=== PATIENT | female | born 2000 | race Caucasian/White ===

== ENCOUNTER 2019-04-13 18:14 | Emergency (ER) | payer BC ==
[2019-04-13 18:24] VITALS: TEMP 98.2
[2019-04-13 18:54] LABS: Basophils # (A) 0.1 k/uL (0-0.2); Basophils % (A) 1 %; Eosinophils # (A) 0.2 k/uL (0-0.7); Eosinophils % (A) 2 %; HCT 45.9 % (34.0-46.0); HGB 14.8 gm/dL (11.4-16.0); Lymphocytes # (A) 2.8 k/uL (1.0-4.8); Lymphocytes % (A) 28 %; MCH 28.2 pg (25.0-35.0); MCHC 32.3 g/dL (31.0-37.0); MCV 87.4 fL (80.0-100.0); Mean Platelet Volume 6.7; Monocytes # (A) 0.5 k/uL (0-1.0); Monocytes % (A) 5 %; Neutrophils # (A) 6.4 k/uL (1.3-7.7); Neutrophils % (A) 64 %; Platelet Count 342 k/uL (150-450); RBC 5.26 m/uL (3.80-5.40); RDW 12.7 % (11.5-15.5); WBC 10.1 k/uL (3.8-10.6)
[2019-04-13 19:02] LABS: ALT 9 U/L (9-52); AST 21 U/L (14-36); African American GFR (CKD) >90 (>60 ml/min/1.73 sqM); Albumin 5.2 g/dL (3.5-5.0); Alkaline Phosphatase 81 U/L (38-126); Anion Gap 11 mmol/L; Blood Urea Nitrogen 10 mg/dL (7-17); Carbon Dioxide 26 mmol/L (22-30); Chloride 104 mmol/L (98-107); Glucose 77 mg/dL (74-99); Non-African American GFR(CKD) >90 (>60 ml/min/1.73 sqM); Potassium 3.8 mmol/L (3.5-5.1); Sodium 141 mmol/L (137-145); Total Bilirubin 0.4 mg/dL (0.2-1.3); Total Protein 8.6 g/dL (6.3-8.2)
[2019-04-13 19:19] LABS: HCG,Quantitative Serum 5584.7 mIU/mL
--- NOTE | 2019-04-13 20:39 | US ---
EXAMINATION TYPE: Transabdominal DATE OF EXAM: 04/13/2019 8:19 PM COMPARISON: NONE CLINICAL HISTORY: pain. pelvic pain, bleeding d 4 days. Irregular periods. EXAM PERFORMED: Transvaginal (TV) EXAM MEASUREMENTS: GESTATIONAL AGE / DATING Physician Established: (5 weeks/3 days) EDC: 12/11/2019 Dates by LMP: Irregular periods Dates by First Scan: This is first scan Dates by Current Scan for: Out of range. MATERNAL ANATOMY Uterus: 6.6 x 4.4 x 3.3 cm. Retroverted. Right Ovary: 3.9 x 2.6 x 1.9 cm. appears wnl Left Ovary: 4.9 x 3.4 x 2.6. Focus of complex echogenicity and peripheral vascularity seen. Anechoic center with debris and hyperechoic rim: 4.2 x 3.0 x 2.0 cm. Post CDS / Adnexa: minimal fluid seen Presence of free fluid: minimal CDS Presence of corpus luteal cyst: mixed echogenicity focus seen as mentioned above in left ovary, measu rin.2 x 3.0 x 2.0 cm. Presence of subchorionic bleed: No. GESTATION / SURVEY CRL: not seen at this time MSD: 0.68 cm. Yolk Sac (normal less than 6mm): Yes IUP: Gestational sac seen within the endometrium of the uterine fundus. Date of LMP: Irregular Beta HcG (if available): 5,584.7 IMPRESSION: IUP as detailed.
--- NOTE | 2019-04-13 21:10 | ED ---
Female Urogenital HPI - General Chief complaint: Vaginal Bleeding Stated complaint: 5 wks /bleeding Source: patient Mode of arrival: ambulatory Limitations: no limitations - History of Present Illness Initial comments: 22-year-old female presenting for chief complaint of bleeding in . Patient states she believes she is around 5 weeks she had an ultrasound yesterday which revealed an intrauterine gestational sac. Patient states she has had vaginal bleeding for the past 4 days she states is now brown more like a period. Patient denies any increasing heaviness. Patient denies any significant pain admits to occasional cramping. Patient denies nausea or vomiting. Denies diarrhea fevers dysuria urgency or frequency. Patient states that her last menstrual period was February 03. She states they are irregular however. Patient has an appointment scheduled with Dr. Jimenez on April 18. Remaining review of system negative. Patient presents emergency department for second opinion. Last Menstrual Period: 02/03/19 - Related Data Home Medications Medication Instructions Recorded Confirmed Antibiotic Drop 1 drop RIGHT EAR DIRECTED 07/17/16 07/20/16 Previous Rx's Medication Instructions Recorded Azithromycin [Zithromax Z-pack] 250 mg PO DIRECTED #6 tab NS 07/20/16 Ciprofloxacin HCl/Dexameth 4 drops RIGHT EAR BID #7.5 ml 07/20/16 [Ciprodex Otic Suspension] Allergies Allergy/AdvReac Type Severity Reaction Status Date / Time Penicillins Allergy Rash/Hives Verified 04/13/19 18:24 Review of Systems ROS Statement: Those systems with pertinent positive or pertinent negative responses have been documented in the HPI. ROS Other: All systems not noted in ROS Statement are negative. Past Medical History Additional Past Medical History / Comment(s): FREQUENT RIGHT EAR INFECTIONS History of Any Multi-Drug Resistant Organisms: None Reported Past Surgical History: Ear Surgery, Orthopedic Surgery Additional Past Surgical History / Comment(s): PREVIOUS MYRINGOTOMY AND TUBES X2, Pins in (R) ankle Past Anesthesia/Blood Transfusion Reactions: No Reported Reaction Past Psychological History: No Psychological Hx Reported Smoking Status: Current every day smoker Past Alcohol Use History: None Reported Past Drug Use History: Marijuana - Past Family History Mother Family Medical History: No Reported History General Exam - General Exam Comments Initial Comments: General: The patient is awake and alert, in no distress, and does not appear acutely ill. Eye: Pupils are equal, round and reactive to light, extra-ocular movements are intact. No nystagmus. There is normal conjunctiva bilaterally. No signs of icterus. Ears, nose, mouth and throat: There are moist mucous membranes and no oral lesions. Neck: The neck is supple, there is no tenderness or JVD. Cardiovascular: There is a regular rate and rhythm. No murmur, rub or gallop is appreciated. Respiratory: Lungs are clear to auscultation, respirations are non-labored, dru ath sounds are equal. No wheezes, stridor, rales, or rhonchi. Gastrointestinal: Soft, non-distended, non-tender abdomen without masses or organomegaly noted. There is no rebound or guarding present. No CVA tenderness. Bowel sounds are unremarkable. Pelvic exam was performed. Here shaped no external lesions. Speculum revealed scant amount of brown discharge in the vau lt. No bright red blood. No adnexal cervical motion tenderness. Patient has no noted cervical lesions. Cervix off to the left side of the vaginal vault. Musculoskeletal: Normal ROM, no tenderness. Strength 5/5. Sensation intact. Pulses equal bilaterally 2+. Neurological: A&O x 3. CN II-XII intact, There are no obvious motor or sensory deficits. Coordination appears grossly intact. Speech is normal. Skin: Skin is warm and dry and no rashes or lesions are noted. Psychiatric: Cooperative, appropriate mood & affect, normal judgment. Limitations: no limitations Course Vital Signs 04/13/19 04/13/19 18:21 21:17 Temperature 98.2 F Pulse Rate 82 65 Respiratory 16 18 Rate Blood Pressure 130/81 115/80 O2 Sat by Pulse 99 100 Oximetry Medical Decision Making - Medical Decision Making Well-appearing 19-year-old female presenting for vaginal bleeding and . Ultrasound revealed a left sided corpus luteal cyst on the ovary. As well as a gestational sac. This is consistent with a hCG of less than 5500. Patient bleeding is not heavy. Cultures pending for STI testing. No adnexal or cervical motion tenderness. Patient has scheduled appointment ASSESSMENT CONSULTANT on Wednesday of next week. Denies pain. Abdominal exam benign. Patient does not require program. At this time I do feel patient is stable for discharge with outpatient follow-up as scheduled. Patient is agreeable to plan return parameters were discussed patient was discharged appearing well - Lab Data Result diagrams: 04/13/19 18:40 08/01/19 18:40 Lab Results 04/13/19 04/13/19 04/13/19 Range/Units 18:40 18:40 18:40 WBC 10.1 (3.8-10.6) k/uL RBC 5.26 (3.80-5.40) m/uL Hgb 14.8 (11.4-16.0) gm/dL Hct 45.9 (34.0-46.0) % MCV 87.4 (80.0-100.0) fL MCH 28.2 (25.0-35.0) pg MCHC 32.3 (31.0-37.0) g/dL RDW 12.7 (11.5-15.5) % Plt Count 342 (150-450) k/uL Neutrophils % 64 % Lymphocytes % 28 % Monocytes % 5 % Eosinophils % 2 % Basophils % 1 % Neutrophils # 6.4 (1.3-7.7) k/uL Lymphocytes # 2.8 (1.0-4.8) k/uL Monocytes # 0.5 (0-1.0) k/uL Eosinophils # 0.2 (0-0.7) k/uL Basophils # 0.1 (0-0.2) k/uL Sodium 141 (137-145) mmol/L Potassium 3.8 (3.5-5.1) mmol/L Chloride 104 (98-107) mmol/L Carbon Dioxide 26 (22-30) mmol/L Anion Gap 11 mmol/L BUN 10 (7-17) mg/dL Creatinine 0.60 (0.52-1.04) mg/dL Est GFR (CKD-EPI)AfAm >90 (>60 ml/min/1.73 sqM) Est GFR (CKD-EPI)NonAf >90 (>60 ml/min/1.73 sqM) Glucose 77 (74-99) mg/dL Calcium 10.0 (8.4-10.2) mg/dL Total Bilirubin 0.4 (0.2-1.3) mg/dL AST 21 (14-36) U/L ALT 9 (9-52) U/L Alkaline Phosphatase 81 (38-126) U/L Total Protein 8.6 H (6.3-8.2) g/dL Albumin 5.2 H (3.5-5.0) g/dL HCG, Quant 5584.7 mIU/mL Trichomonas Ag (Rapid) (Negative) Blood Type O Positive Blood Type Confirm Blood Type Recheck CABO Indicated Antibody Screen NEGATIVE Spec Expiration Date 04/16/2019 - 233904/13/19 04/13/19 Range/Units 19:26 21:09 WBC (3.8-10.6) k/uL RBC (3.80-5.40) m/uL Hgb (11.4-16.0) gm/dL Hct (34.0-46.0) % MCV (80.0-100.0) fL MCH (25.0-35.0) pg MCHC (31.0-37.0) g/dL RDW (11.5-15.5) % Plt Count (150-450) k/uL Neutrophils % % Lymphocytes % % Monocytes % % Eosinophils % % Basophils % % Neutrophils # (1.3-7.7) k/uL Lymphocytes # (1.0-4.8) k/uL Monocytes # (0-1.0) k/uL Eosinophils # (0-0.7) k/uL Basophils # (0-0.2) k/uL Sodium (137-145) mmol/L Potassium (3.5-5.1) mmol/L Chloride (98-107) mmol/L Carbon Dioxide (22-30) mmol/L Anion Gap mmol/L BUN (7-17) mg/dL Creatinine (0.52-1.04) mg/dL Est GFR (CKD-EPI)AfAm (>60 ml/min/1.73 sqM) Est GFR (CKD-EPI)NonAf (>60 ml/min/1.73 sqM) Glucose (74-99) mg/dL Calcium (8.4-10.2) mg/dL Total Bilirubin (0.2-1.3) mg/dL AST (14-36) U/L ALT (9-52) U/L Alkaline Phosphatase (38-126) U/L Total Protein (6.3-8.2) g/dL Albumin (3.5-5.0) g/dL HCG, Quant mIU/mL Trichomonas Ag (Rapid) Negative (Negative) Blood Type Blood Type Confirm O Positive Blood Type Recheck Antibody Screen Spec Expiration Date Disposition Clinical Impression: Threatened Disposition: HOME SELF-CARE Condition: Good Instructions (If sedation given, give patient instructions): Threatened Miscarriage (ED), Ovarian Cyst (ED) Additional Instructions: Please use medication as discussed. Please follow-up with OBGYN on the 6th as discussed. Please return to emergency room if the symptoms increase or worsen or for any other concerns. Is patient prescribed a controlled substance at d/c from ED?: No Referrals: Ulises Robin DO [Primary Care Provider] - 1-2 days Eladia Tong DO [Doctor of Osteopathic Medicine] - 1-2 days Time of Disposition: 21:09
[2019-04-13 21:18] VITALS: BP 115/80; PULSE 65; RESP 18
[2019-04-15 15:37] LABS: C. trachomatis,PCR Negative (Neg,Equiv); Chlamydia trachomatis Source Vagina
[2019-04-15 15:38] LABS: N. gonorrhoeae,PCR Negative (Neg,Equiv); Neisseria Source Vagina
== END 2019-04-13 21:17 | disposition home or self-care (01) ==
LOC: EC 18:14
DX: O20.0 Threatened abortion (principal); O34.81 Maternal care for other abnormalities of pelvic organs, first trimester; N83.12 Corpus luteum cyst of left ovary; O99.331 Smoking (tobacco) complicating pregnancy, first trimester; F17.200 Nicotine dependence, unspecified, uncomplicated; Z88.0 Allergy status to penicillin; Z86.19 Personal history of other infectious and parasitic diseases; Z96.22 Myringotomy tube(s) status; Z3A.01 Less than 8 weeks gestation of pregnancy
CPT/HCPCS: 36415; 76801; 76817; 80053; 84702; 85025; 86850; 86900; 86901; 87070; 87205; 87491; 87591; 87808; 99284

== ENCOUNTER 2019-07-11 20:54 | Emergency (ER) | payer BC, OTHER ==
[2019-07-11 21:03] VITALS: BP 110/62; PULSE 95; RESP 18; TEMP 98.2
[2019-07-11 21:27] LABS: Appearance,Urine Clear (Clear); Bacteria,Urine Rare /hpf; Bilirubin,Urine Negative (Negative); Blood,Urine Small (Negative); Color,Urine Yellow; Glucose,Urine (UA) Negative (Negative); Ketones,Urine Negative (Negative); Leukocyte Esterase,Urine Negative (Negative); Nitrite,Urine Negative (Negative); Protein,Urine Negative (Negative); RBC,Urine 3 /hpf (0-5); Squamous Epithelial Cell,Urine <1 /hpf (0-4); Urobilinogen,Urine <2.0 mg/dL (<2.0)
--- NOTE | 2019-07-11 21:37 | ED ---
General Adult HPI - General Chief complaint: Abdominal Pain Stated complaint: Fever,Abd Cramping 18 weeks Preg Time Seen by Provider: 07/11/19 21:17 Source: patient Mode of arrival: ambulatory Limitations: no limitations - History of Present Illness Initial comments: Hui is a female currently 18 wks gestation who presents to the ER today via private vehicle for evaluation of decreased movement and low grade fever. Patient states that all week her vision has been running 99-99.8 she's been eating and drinking well, she saw her primary care physician earlier in the week and was told that likely her temperature is high due to being dehydrated so she's been trying to drink 4 bottles of water per day. Patient states that over the past 2 days she doesn't feel like the baby's been moving as much, she is not scheduled to see her predictive maintenance specialist until the fifth so she became anxious. Patient also states that she's been eating at least a couple of apples every day and today was notified that there is a recall on apples due to possible listeria. Patient Dr. primary care physician about this and was advised that there is nothing she can do. Patient is not having any signs or symptoms of illness. - Related Data Home Medications Medication Instructions Recorded Confirmed Antibiotic Drop 1 drop RIGHT EAR DIRECTED 07/17/16 07/20/16 Previous Rx's Medication Instructions Recorded Azithromycin [Zithromax Z-pack] 250 mg PO DIRECTED #6 tab NS 07/20/16 Ciprofloxacin HCl/Dexameth 4 drops RIGHT EAR BID #7.5 ml 07/20/16 [Ciprodex Otic Suspension] Allergies Allergy/AdvReac Type Severity Reaction Status Date / Time Penicillins Allergy Rash/Hives Verified 07/11/19 21:02 Review of Systems ROS Statement: Those systems with pertinent positive or pertinent negative responses have been documented in the HPI. ROS Other: All systems not noted in ROS Statement are negative. Past Medical History Additional Past Medical History / Comment(s): FREQUENT RIGHT EAR INFECTIONS History of Any Multi-Drug Resistant Organisms: None Reported Past Surgical History: Ear Surgery, Orthopedic Surgery Additional Past Surgical History / Comment(s): PREVIOUS MYRINGOTOMY AND TUBES X2, Pins in (R) ankle, Past Anesthesia/Blood Transfusion Reactions: No Reported Reaction Past Psychological History: No Psychological Hx Reported Smoking Status: Current every day smoker Past Alcohol Use History: None Reported Past Drug Use History: Marijuana - Past Family History Mother Family Medical History: No Reported History General Exam - General Exam Comments Initial Comments: Physical Exam GENERAL: Patient is well-developed and well-nourished. Patient is nontoxic and well- hydrated and is in no distress. Resting comfortably drinking water no acute distress HENT: Normocephalic, Atraumatic. EYES: PERRL, EOMI PULMONARY: Unlabored respirations. No audible rales rhonchi or wheezing was noted. CARDIOVASCULAR: There is a regular rate and rhythm without any murmurs gallops or rubs. ABDOMEN: Soft and nontender with normal bowel sounds. Uterus is palpable just below the umbilicus, no tenderness SKIN: Skin is clear with no lesions or rashes and otherwise unremarkable. : Deferred Patient denies vaginal discharge or bleeding NEUROLOGIC: Patient is alert and oriented x3. Moving all extremities spontaneously MUSCULOSKELETAL: Normal extremities with adequate strength and full range of motion. No lower extremity swelling or edema. No calf tenderness. PSYCHIATRIC: Normal psychiatric evaluation. Limitations: no limitations Course Vital Signs 07/11/19 20:58 Temperature 98.2 F Pulse Rate 95 Respiratory 18 Rate Blood Pressure 110/62 O2 Sat by Pulse 98 Oximetry Medical Decision Making - Medical Decision Making The patient was seen and evaluated, history was obtained from the patient Patient concerned about exposure Listeria that she is asymptomatic, patient also concerned that her temperature is been reading about 99% she was afebrile here not taking any antipyretics drink plenty of fluids having normal bowel and bladder habits. Urinalysis was obtained with no signs of infection, patient has had trace blood in her urine throughout the she's followed with her predictive maintenance specialist about this. Bedside ultrasound reveals an active fetus heart rate in the 140s expresses significant relief after single active fetus. At this time I don't feel there is any indication for further workup. Patient is awake alert oriented well-hydrated in no acute distress with active fetus on ultrasound. Patient's comfortable with the plan for outpatient follow-up with her predictive maintenance specialist as scheduled on July 18. - Lab Data Lab Results 07/11/19 Range/Units 21:06 Urine Color Yellow Urine Appearance Clear (Clear) Urine pH 7.0 (5.0-8.0) Ur Specific [place] 1.010 (1.001-1.035) Urine Protein Negative (Negative) Urine Glucose (UA) Negative (Negative) Urine Ketones Negative (Negative) Urine Blood Small H (Negative) Urine Nitrite Negative (Negative) Urine Bilirubin Negative (Negative) Urine Urobilinogen <2.0 (<2.0) mg/dL Ur Leukocyte Esterase Negative (Negative) Urine RBC 3 (0-5) /hpf Urine WBC 2 (0-5) /hpf Ur Squamous Epith Cells <1 (0-4) /hpf Urine Bacteria Rare H (None) /hpf Disposition Clinical Impression: Abdominal pain affecting Disposition: HOME SELF-CARE Condition: Stable Instructions (If sedation given, give patient instructions): Abdominal Pain in (ED) Is patient prescribed a controlled substance at d/c from ED?: No Referrals: Ulises Robin DO [Primary Care Provider] - 1-2 days
== END 2019-07-11 21:51 | disposition home or self-care (01) ==
LOC: EC 20:54
DX: O99.89 Other specified diseases and conditions complicating pregnancy, childbirth and the puerperium (principal); R10.9 Unspecified abdominal pain; R50.9 Fever, unspecified; O99.332 Smoking (tobacco) complicating pregnancy, second trimester; F17.200 Nicotine dependence, unspecified, uncomplicated; Z3A.18 18 weeks gestation of pregnancy; Z88.0 Allergy status to penicillin
CPT/HCPCS: 81001; 99284

== ENCOUNTER 2019-11-19 23:03 | Emergency (ER) | payer BC, OTHER ==
[2019-11-19 23:09] VITALS: TEMP 98
--- NOTE | 2019-11-20 01:04 | ED ---
General Adult HPI - General Chief complaint: Abdominal Pain Stated complaint: Constipation-37wks preg Time Seen by Provider: 11/19/19 23:25 Source: patient Mode of arrival: ambulatory Limitations: no limitations - History of Present Illness Initial comments: 19-year-old female patient presents to the emergency department today for evaluation of constipation. Patient states she is 37 weeks and has been having issues with constipation since becoming . States that she did have issues with constipation prior to as well. Patient states that she has had only one good bowel movement over the last month. States that she has been taking MiraLAX, using suppositories, and stool softeners without relief. States that she has seen her VICE CHAIR. Patient states it has been 6 days since any stool output. States she is passing gas. Denies any nausea or vomiting. Patient states that she is eating without difficulty however she feels her appetite is decreased. Patient is feeling normal movement. She denies any abnormal vaginal bleeding or discharge. She is receiving care from Dr. Tong. Patient denies any recent rash, fever, chills, shortness breath, chest pain, abdominal pain, back pain, numbness, tingling, dizziness, weakness, hematuria, dysuria, urinary urgency, urinary frequency, headache, visual changes, or any other complaints. - Related Data Home Medications Medication Instructions Recorded Confirmed Acetaminophen [Tylenol Extra 500 mg PO DAILY PRN 07/11/19 07/11/19 Strength] Allergies Allergy/AdvReac Type Severity Reaction Status Date / Time Penicillins Allergy Rash/Hives Verified 11/19/19 23:09 Review of Systems ROS Statement: Those systems with pertinent positive or pertinent negative responses have been documented in the HPI. ROS Other: All systems not noted in ROS Statement are negative. Past Medical History Additional Past Medical History / Comment(s): FREQUENT RIGHT EAR INFECTIONS History of Any Multi-Drug Resistant Organisms: None Reported Past Surgical History: Ear Surgery, Orthopedic Surgery Additional Past Surgical History / Comment(s): PREVIOUS MYRINGOTOMY AND TUBES X2, Pins in (R) ankle, Past Anesthesia/Blood Transfusion Reactions: No Reported Reaction Past Psychological History: No Psychological Hx Reported Smoking Status: Current every day smoker Past Alcohol Use History: None Reported Past Drug Use History: Marijuana - Past Family History Mother Family Medical History: No Reported History General Exam Limitations: no limitations General appearance: alert, in no apparent distress, other (This is a well- developed, well-nourished adult female patient in no acute distress. Vital signs upon presentation are temperature 98.0F, pulse 77, respirations 20, blood pressure 144/85, pulse ox 99% on room air.) Eye exam: Present: normal appearance, PERRL, EOMI. Absent: scleral icterus, conjunctival injection, periorbital swelling ENT exam: Present: normal exam, normal oropharynx, mucous membranes moist Respiratory exam: Present: normal lung sounds bilaterally. Absent: respiratory distress, wheezes, rales, rhonchi, stridor Cardiovascular Exam: Present: regular rate, normal rhythm, normal heart sounds. Absent: systolic murmur, diastolic murmur, rubs, gallop, clicks GI/Abdominal exam: Present: normal bowel sounds, other (Gravid abdomen). Absent: distended, tenderness, guarding, rebound, rigid Back exam: Present: normal inspection. Absent: CVA tenderness (R), CVA tenderness (L) Neurological exam: Present: alert, oriented X3, CN II-XII intact Psychiatric exam: Present: normal affect, normal mood Skin exam: Present: warm, dry, intact, normal color. Absent: rash Course Vital Signs 11/19/19 11/20/19 23:05 01:18 Temperature 98.0 F 98.0 F Pulse Rate 77 70 Respiratory 20 18 Rate Blood Pressure 144/85 138/81 O2 Sat by Pulse 99 100 Oximetry Medical Decision Making - Medical Decision Making 19-year-old female patient presents to the emergency department today for evaluation of constipation. States his been sick states that she's had a bowel movement. She reports no significant discomfort. Physical examination reveals a gravid abdomen with no tenderness. heart tones ranged from the 140s to the 160s. movement was palpated. Patient denied abnormal vaginal bleeding or discharge. We did administer a milk and molasses enema. Patient did have a large bowel movement. States she does feel better. To be discharged to follow-up with her VICE CHAIR for recheck in 1-2 days. Return parameters were discussed in detail. She verbalizes understanding and agrees this plan. Disposition Clinical Impression: Constipation Disposition: HOME SELF-CARE Condition: Good Instructions (If sedation given, give patient instructions): Constipation (ED) Additional Instructions: Follow up with your OBGYN for recheck in 1-2 days. Increase fluids, especially water - try to drink half of your body weight in ounces daily. Increase fruits and vegetables in the diet. Avoid foods you know to be constipating. Return to the emergency department immediately for any new, worsening, or concerning symptoms. Is patient prescribed a controlled substance at d/c from ED?: No Referrals: Ulises Robin DO [Primary Care Provider] - 1-2 days Time of Disposition: 01:04
[2019-11-20 01:20] VITALS: BP 138/81; PULSE 70; RESP 18
== END 2019-11-20 01:18 | disposition home or self-care (01) ==
LOC: EC 23:03
DX: O99.613 Diseases of the digestive system complicating pregnancy, third trimester (principal); K59.00 Constipation, unspecified; O99.333 Smoking (tobacco) complicating pregnancy, third trimester; F17.200 Nicotine dependence, unspecified, uncomplicated; Z88.0 Allergy status to penicillin; Z3A.37 37 weeks gestation of pregnancy
CPT/HCPCS: 99283

== ENCOUNTER 2019-11-23 13:28 | Outpatient (CLI) | payer BC, OTHER ==
[2019-11-23 14:54] VITALS: BP 120/74; PULSE 89; RESP 16; TEMP 98.2
--- NOTE | 2019-12-06 11:51 | P.MSEPDOC ---
Presenting Problems - Arrival Data Date of Arrival on Unit: 11/23/19 Time of Arrival on Unit: 13:28 Mode of Transport: Ambulatory - Complaint OB-Reason for Admission/Chief Complaint: Possible Onset of Labor, Rule Out SROM Medical History - Information : 1 Para: 0 Term: 0 : 0 Abortions: Spontaneous or Elective: 0 Number of Living Children: 0 - Gestational Age Gestational Age by ERICK (wks/days): 37 Weeks and 3 Days - History Complications: Smoker Comment: 2 vessel cord Review of Systems - Review of Systems Constitutional: No problems Breast: No problems ENT: No problems Cardiovascular: No problems Respiratory: No problems Gastrointestinal: No problems Genitourinary: No problems Musculoskeletal: No problems Neurological: No problems Skin: No problems Vital Signs - Temperature Temperature: 98.2 F Temperature Source: Temporal Artery Scan - Pulse Right Sitting Pulse Rate: 89 Pulse Assessment Method: Automatic Cuff - Respirations Respiratory Rate: 16 Oxygen Delivery Method: Room Air O2 Sat by Pulse Oximetry: 99 - Blood Pressure Right Arm Blood Pressure: 120/74 Blood Pressure Mean: 89 Blood Pressure Source: Automatic Cuff Medical Screen Scoring (Pre) - Cervical Exam Dilation: 0 cm = 0 Membranes: Intact - Uterine Contractions Frequency: > 5 minutes apart = 1 - Maternal Vital Signs Maternal Temperature: N/A Maternal Blood Pressure: N/A Signs of Preeclampsia: N/A Maternal Respirations: N/A - Maternal Trauma Maternal Trauma: N/A - Assessment - Baby A Baseline FHR: 120 Heart Rate - NICHD Category: Category I (Normal) = 0 NST: Reactive Position: N/A Station: N/A - Total Score - Baby A Total Score - Baby A: 1 - Total Score - Baby B Total Score - Baby B: 1 - Total Score - Baby C Total Score - Baby C: 1 - Level of Risk - Baby A Level of Risk - Baby A: Low (0-5) - Level of Risk - Baby B Level of Risk - Baby B: Low (0-5) - Level of Risk - Baby C Level of Risk - Baby C: Low (0-5) Physician Notification (Pre) - Physician Notified Physician Notified Date: 11/23/19 Physician Notified Time: 14:26 New Order Received: Yes (d/c) Disposition - Disposition OB Disposition: Discharge to home Discharge Date: 11/23/19 Discharge Time: 14:40 I agree with the RN Medical Screening Exam: Yes Risk & Benefit of care provided described in d/c instruction: Yes Diagnosis: FALSE LABOR AT OR AFTER 37 COMPLETED WEEKS OF GESTATION
== END 2019-11-23 14:40 | disposition home or self-care (01) ==
LOC: FBPOP 13:28
PROVIDERS: ATTEND Obstetrics & Gynecology Obstetrics
DX: O47.1 False labor at or after 37 completed weeks of gestation (principal); Z3A.37 37 weeks gestation of pregnancy
CPT/HCPCS: 59025; 84112; 99213

== ENCOUNTER 2019-11-28 12:46 | Inpatient (IN) | payer BC, OTHER ==
--- NOTE | 2019-11-28 12:45 | P.HPOB ---
History of Present Illness H&P Date: 11/28/19 Chief Complaint: IUP at 38 and 0/sevenths weeks, IUGR, SUA This is a 19-year-old 1 para 0 at 38-0/7 weeks that presented for routine visit today along with ultrasound growth evaluation. Patient has known single umbilical artery has been followed closely for growth and testing. Patient was noted to have an estimated weight approximately 4 weeks ago of 18 percentile, today estimated weight was noted to be 8 percentile. Patient had a normal amniotic fluid index of 13, NST was noted to be reactive. Cervix is noted to be unfavorable but given worsening IUGR recommendation was made for induction of labor. Patient has been receiving routine care with myself and has been compliant with a testing. Review of Systems Constitutional: Denies chills, Denies fatigue, Denies fever Ears, nose, mouth and throat: Denies headache Cardiovascular: Denies edema Gastrointestinal: Reports constipation, Denies nausea, Denies vomiting Genitourinary: Reports Past Medical History Additional Past Medical History / Comment(s): FREQUENT RIGHT EAR INFECTIONS History of Any Multi-Drug Resistant Organisms: None Reported Past Surgical History: Ear Surgery, Orthopedic Surgery Additional Past Surgical History / Comment(s): PREVIOUS MYRINGOTOMY AND TUBES X2, Pins in (R) ankle, Past Anesthesia/Blood Transfusion Reactions: No Reported Reaction Smoking Status: Current every day smoker - Past Family History Mother Family Medical History: No Reported History Medications and Allergies Home Medications Medication Instructions Recorded Confirmed Type Acetaminophen [Tylenol Extra 500 mg PO DAILY PRN 07/11/19 11/23/19 History Strength] Pnv No.95/Ferrous Fum/Folic AC 1 tab PO DAILY 11/23/19 11/23/19 History [ Multivitamin Tablet] Allergies Allergy/AdvReac Type Severity Reaction Status Date / Time Penicillins Allergy Rash/Hives Verified 11/23/19 13:46 Exam Osteopathic Statement: *. No significant issues noted on an osteopathic structural exam other than those noted in the History and Physical/Consult. Targeted physical exam is performed in this date in general this a well- nourished well-developed female in no acute distress, breathing is noted to be nonlabored, heart has regular rate and rhythm, abdomen is gravid, heart tones were category 1, cervical exam in the office fingertip/50/high station v ertex based on ultrasound. Assessment and Plan (1) 38 weeks gestation of Status: Acute Code(s): Z3A.38 - 38 WEEKS GESTATION OF SNOMED Code(s): 47272306 (2) IUGR (intrauterine growth restriction) Status: Acute Code(s): PCF0394 - SNOMED Code(s): 02117881 (3) Single umbilical artery Status: Acute Code(s): Q27.0 - CONGENITAL ABSENCE AND HYPOPLASIA OF UMBILICAL ARTERY SNOMED Code(s): 388576444 Plan: Patient is admitted to labor and delivery and plan Cervidil induction of labor is discussed. Patient is counseled on the need for induction of labor secondary to asymmetrical IUGR noted on ultrasound today. Given patient's gestational age of 38 weeks will proceed with Cervidil induction of labor. 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
[~2019-11-28 12:46] MED LIST: CARBOPROST TROMETHAMINE 250 MCG/ML 1 ML AMP IM PRN; LIDOCAINE 0.5% (PF) 5 MG/ML (50 ML SDV) SQ PRN; METHYLERGONOVINE 0.2 MG/ML 1 ML AMP IM PRN; OXYTOCIN 10 UNIT/ML 1 ML VIAL IM PRN; TERBUTALINE 1 MG/ML VIAL SQ PRN
[2019-11-28] MEDS ORDERED: DINOPROSTONE 10 MG INSERT.ER VAGINAL ONE (13:00)
[2019-11-28] MEDS: LACTATED RINGERS 1,000 ML IV SCH (13:15)
[2019-11-28 13:40] LABS: Basophils # (A) 0.1 k/uL (0-0.2); Basophils % (A) 0 %; Eosinophils # (A) 0.1 k/uL (0-0.7); Eosinophils % (A) 1 %; HCT 38.7 % (34.0-46.0); HGB 12.8 gm/dL (11.4-16.0); Lymphocytes # (A) 1.8 k/uL (1.0-4.8); Lymphocytes % (A) 12 %; MCH 30.3 pg (25.0-35.0); MCHC 33.2 g/dL (31.0-37.0); MCV 91.3 fL (80.0-100.0); Mean Platelet Volume 7.4; Monocytes # (A) 0.6 k/uL (0-1.0); Monocytes % (A) 4 %; Neutrophils # (A) 11.8 k/uL (1.3-7.7); Neutrophils % (A) 82 %; Platelet Count 291 k/uL (150-450); RBC 4.24 m/uL (3.80-5.40); RDW 12.9 % (11.5-15.5); WBC 14.5 k/uL (3.8-10.6)
[2019-11-28] MEDS: BUTORPHANOL 1 MG/ML 1 ML VIAL IV PRN ×3 (17:29→22:42)
[2019-11-29] MEDS: LACTATED RINGERS 1,000 ML IV SCH ×4 (01:50→11:23)
[2019-11-29] MEDS ORDERED: OXYTOCIN 30 UNITS/500 ML NS 30 UNIT in SALINE 1 500ML.BAG IV SCH (02:45)
[2019-11-29] MEDS: BUTORPHANOL 1 MG/ML 1 ML VIAL IV PRN ×3 (03:34→07:52)
[2019-11-29] MEDS: PRENATAL VIT-IRON-FOLIC ACID 1 EACH CAP PO SCH (08:27)
[2019-11-29] MEDS ORDERED: ROPIVACAINE 100 MG, fentaNYL (PF) 200 MCG in SODIUM CHLORIDE 0.9% 76 ML EPIDURAL ONE (09:56)
[2019-11-29] MEDS ORDERED: diphenhydrAMINE 50 MG/ML 1 ML VIAL IVP PRN ×2 (14:07)
[2019-11-29] MEDS ORDERED: diphenhydrAMINE 50 MG CAP PO PRN (14:07)
[2019-11-29] MEDS ORDERED: HYDROcodone/APAP 5-325MG 1 EACH TAB PO PRN (14:07)
[2019-11-29] MEDS ORDERED: HYDROCORTISONE 2.5% RECTAL CREAM 30 GM TUBE RECTAL PRN (14:07)
[2019-11-29] MEDS ORDERED: BENZOCAINE/MENTHOL SPRAY 1 GM/SPRAY AEROSOL TOPICAL PRN (14:07)
[2019-11-29] MEDS ORDERED: ZOLPIDEM 5 MG TAB PO PRN (14:07)
[2019-11-29] MEDS ORDERED: diphenhydrAMINE 25 MG CAP PO PRN (14:07)
[2019-11-29] MEDS ORDERED: WITCH HAZEL 1 EACH MED..PAD TOPICAL PRN (14:07)
[2019-11-29] MEDS ORDERED: SIMETHICONE 80 MG CHEWABLE PO PRN (14:07)
[2019-11-29] MEDS ORDERED: LANOLIN CREAM 5 GM TUBE TOPICAL PRN (14:07)
--- NOTE | 2019-11-29 14:13 | P.PROBDLV ---
Vaginal Delivery Note - . Vaginal Delivery Note: This pleasant 19-year-old 1 para 0 at 38-0/7 weeks presented to the office yesterday for a routine visit. Patient had scheduled and growth ultrasounds secondary to single umbilical artery. Growth was noted to decrease from the 18th percentile to the 8th percentile. Patient was then instructed to present to labor and delivery for induction of labor secondary to severe intrauterine growth restriction. Patient was admitted and Cervidil was placed. Patient made progress through the evening and this morning was noted to be 1/80/-1 station. Amniotomy was performed. Patient became uncomfortable requested epidural placement. Patient had epidural placed by the anesthesia Department without difficulty. Patient progressed to complete began pushing and had a normal spontaneous vaginal delivery of a viable female infant at 1343, weight of 5 lbs. 2 oz. with Apgars of 8 and 9 at one and 5 minutes respectively. After a two-minute delayed the umbilical cord was then doubly clamped and cut. Prior to delivery of the head a midline episiotomy was preformed. Placenta was noted to be retained therefore manual extraction was performed placenta was noted to be intact. Uterus was noted to be firm and below the umbilicus at this time. Attention was then turned to the midline episiotomy was repaired without difficulty with 3-0 Rapide. Estimated blood loss 200 mL. Further inspection of the patient's vaginal vault revealed no further l acerations that necessitated repair. The cervix was inspected and hemostatic. Patient and tolerated delivery well and are resting comfortably.
[2019-11-29] MEDS ORDERED: OXYTOCIN 20 UNITS/1000 ML NS 1,000 ML IV SCH (14:15)
[2019-11-29] MEDS: IBUPROFEN 600 MG TAB PO PRN ×2 (15:38→22:24)
[2019-11-29] MEDS: SENNOSIDES-DOCUSATE SODIUM 1 EACH TAB PO SCH (19:56)
[2019-11-30] MEDS: ACETAMINOPHEN TAB 325 MG TAB PO PRN ×3 (01:39→23:48)
[2019-11-30] MEDS: IBUPROFEN 600 MG TAB PO PRN ×2 (06:02→16:38)
[2019-11-30 06:48] LABS: Basophils % (A) 0 %; Eosinophils # (A) 0.1 k/uL (0-0.7); Eosinophils % (A) 1 %; HCT 31.6 % (34.0-46.0); HGB 10.9 gm/dL (11.4-16.0); Lymphocytes # (A) 2.2 k/uL (1.0-4.8); Lymphocytes % (A) 13 %; MCH 31.6 pg (25.0-35.0); MCHC 34.5 g/dL (31.0-37.0); MCV 91.5 fL (80.0-100.0); Mean Platelet Volume 7.4; Monocytes # (A) 0.8 k/uL (0-1.0); Monocytes % (A) 5 %; Neutrophils # (A) 13.2 k/uL (1.3-7.7); Neutrophils % (A) 80 %; Platelet Count 233 k/uL (150-450); RBC 3.46 m/uL (3.80-5.40); RDW 13.1 % (11.5-15.5); WBC 16.6 k/uL (3.8-10.6)
[2019-11-30] MEDS: SENNOSIDES-DOCUSATE SODIUM 1 EACH TAB PO SCH ×2 (08:20→23:48)
[2019-11-30] MEDS: PRENATAL VIT-IRON-FOLIC ACID 1 EACH CAP PO SCH (08:21)
--- NOTE | 2019-11-30 08:49 | P.DS ---
Providers Date of admission: 11/28/19 12:46 Expected date of discharge: 11/30/19 Attending physician: Eladia Tong Primary care physician: Stated None - Discharge Diagnosis(es) (1) 38 weeks gestation of Current Visit: No Status: Acute (2) IUGR (intrauterine growth restriction) Current Visit: No Status: Acute (3) Single umbilical artery Current Visit: No Status: Acute Hospital Course: This is a 19-year-old 1 para 0 at 38 and one sevenths weeks that presented to labor and delivery for induction of labor secondary to severe IUGR. Patient was admitted to labor and delivery and Cervidil induction was begun. In the morning Pitocin augmentation of labor was begun. Amniotomy was performed and clear fluid was obtained. Patient eventually became uncomfortable and requested epidural placement. Epidural was placed without difficulty by the anesthesia department. She progressed to complete began pushing and had a normal spontaneous vaginal delivery of a viable female a weight of 5 lbs. 2 oz. Patient did undergo episiotomy during delivery, this was repaired in the usual fashion with 3-0 Rapide. Patient's course has been uneventful. She is ambulating and voiding without difficulty. She is tolerating a regular diet without nausea or vomiting. The is working on feeding and she is currently bottle feeding at this time. She would like discharge home today if possible. Patient Condition at Discharge: Good Plan - Discharge Summary New Discharge Prescriptions: No Action Pnv No.95/Ferrous Fum/Folic AC [ Multivitamin Tablet] 1 tab PO DAILY Discharge Medication List Pnv No.95/Ferrous Fum/Folic AC [ Multivitamin Tablet] 1 tab PO DAILY 11/23/19 [History] Patient Instructions/Handouts: Vaginal Delivery (DC), Vaginal Delivery (GEN) Discharge Disposition: HOME SELF-CARE
[2019-12-01 00:43] VITALS: TEMP 98.3
--- NOTE | 2019-12-01 05:30 | P.PNOBGVD ---
Subjective - Subjective Principal diagnosis: PPD 2 Interval history: Patient is doing well. She is ambulating and voiding without difficulty. She is tolerating a regular diet without nausea or vomiting. Her lochia is minimal. Patient reports: Reports appetite normal, Reports voiding normally, Reports pain well controlled, Reports ambulating normally [place]: doing well, bottle feeding Objective - Latest Vital Signs Latest vital signs: Vital Signs Temp Pulse Resp BP 12/01/19 00:00 98.3 F 57 L 14 100/59 11/30/19 16:00 98.9 F 68 18 101/55 11/30/19 07:55 97.6 F 60 18 111/58 Intake and Output 11/30/19 11/30/19 12/01/19 14:59 22:59 06:59 Other: # Voids 1 2 - Exam Extremities: Present: normal Abdomen: Present: normal appearance, soft Uterus: Present: normal, firm - Labs Labs: Abnormal Lab Results - Last 24 Hours (Table) 11/30/19 Range/Units 06:31 WBC 16.6 H (3.8-10.6) k/uL RBC 3.46 L (3.80-5.40) m/uL Hgb 10.9 L (11.4-16.0) gm/dL Hct 31.6 L (34.0-46.0) % Neutrophils # 13.2 H (1.3-7.7) k/uL Assessment and Plan (1) 38 weeks gestation of Current Visit: No Status: Acute Code(s): Z3A.38 - 38 WEEKS GESTATION OF SNOMED Code(s): 76157877 (2) IUGR (intrauterine growth restriction) Current Visit: No Status: Acute Code(s): DPL3170 - SNOMED Code(s): 67920922 (3) Single umbilical artery Current Visit: No Status: Acute Code(s): Q27.0 - CONGENITAL ABSENCE AND HYPOPLASIA OF UMBILICAL ARTERY SNOMED Code(s): 867337046 (4) Status post vaginal delivery Current Visit: Yes Status: Acute Code(s): RXI4979 - SNOMED Code(s): 116413510 Plan: Plan discharge home pending infant's bili. Discharge instructions were reviewed with the patient previously. Patient's follow-up at 4-6 weeks for routine visit. [id number] ibuprofen as needed for discomfort. She is to call with any questions prior to this appointment.
[2019-12-01] MEDS: ACETAMINOPHEN TAB 325 MG TAB PO PRN ×2 (08:06→13:46)
[2019-12-01 08:36] VITALS: BP 104/51; PULSE 94; RESP 18
[2019-12-01] MEDS: SENNOSIDES-DOCUSATE SODIUM 1 EACH TAB PO SCH (09:09)
[2019-12-01] MEDS: PRENATAL VIT-IRON-FOLIC ACID 1 EACH CAP PO SCH (14:42)
== END 2019-12-01 15:40 | disposition home or self-care (01) | DRG 807 ==
LOC: 4FBP 12:46
PROVIDERS: ADMIT Obstetrics & Gynecology Obstetrics; ATTEND Obstetrics & Gynecology Obstetrics
PROC: 3E0P7VZ Introduction of Hormone into Female Reproductive, Via Natural or Artificial Opening (ICD-10-PCS; principal; 2019-11-29)
PROC: 10E0XZZ Delivery of Products of Conception, External Approach (ICD-10-PCS; principal; 2019-11-29)
DX: O36.5930 Maternal care for other known or suspected poor fetal growth, third trimester, not applicable or unspecified (principal); Z37.0 Single live birth; O69.89X0 Labor and delivery complicated by other cord complications, not applicable or unspecified; O99.334 Smoking (tobacco) complicating childbirth; F17.210 Nicotine dependence, cigarettes, uncomplicated; Z3A.38 38 weeks gestation of pregnancy
CPT/HCPCS: 85025; 86850; 86900; 86901

== ENCOUNTER 2020-01-31 10:53 | Emergency (ER) | payer BC, OTHER ==
[2020-01-31 11:01] VITALS: RESP 18
[2020-01-31] MEDS ORDERED: KETOROLAC 30 MG/ML 1 ML VIAL IVP STA (11:17)
[2020-01-31] MEDS ORDERED: ONDANSETRON 4 MG/2 ML VIAL IVP STA (11:17)
[2020-01-31] MEDS ORDERED: SODIUM CHLORIDE 0.9% 1,000 ML IV STA ×2 (11:17)
--- NOTE | 2020-01-31 11:25 | ED ---
Abdominal Pain HPI - General Chief Complaint: Abdominal Pain Stated Complaint: Kidney stone Time Seen by Provider: 01/31/20 11:02 Source: patient, RN notes reviewed, old records reviewed Mode of arrival: ambulatory Limitations: no limitations - History of Present Illness Initial Comments: Patient is a 19-year-old female who presents emergency Department today with complaints of low abdominal pain, some dysuria and right-sided flank pain for the past 3 days. Patient states that she is 2 months with vaginal delivery. She is not breast feeding. She denies any significant abnormal vaginal discharge. Her [employer] is Dr. Barnett. Patient relates that she's had no nausea or vomiting. She reports that she had a similar pain approximately one and half months ago at that time was diagnosed with kidney stones at [facility]. She reports that she was told she had multiple kidney stones and make passed them. Patient states that she's low-grade temperature from time to time for the past 2 days. She denies any surgical history. - Related Data Home Medications Medication Instructions Recorded Confirmed Acetaminophen [Tylenol Arthritis] 1,300 mg PO Q8H PRN 01/31/20 01/31/20 Allergies Allergy/AdvReac Type Severity Reaction Status Date / Time Penicillins Allergy Rash/Hives Verified 01/31/20 13:15 Review of Systems ROS Statement: Those systems with pertinent positive or pertinent negative responses have been documented in the HPI. ROS Other: All systems not noted in ROS Statement are negative. Past Medical History Additional Past Medical History / Comment(s): FREQUENT RIGHT EAR INFECTIONS, Chronic Constipation, Kidney infections History of Any Multi-Drug Resistant Organisms: None Reported Past Surgical History: Ear Surgery, Orthopedic Surgery Additional Past Surgical History / Comment(s): PREVIOUS MYRINGOTOMY AND TUBES X2, Pins in (R) ankle, Past Anesthesia/Blood Transfusion Reactions: No Reported Reaction Past Psychological History: No Psychological Hx Reported Smoking Status: Current every day smoker Past Alcohol Use History: None Reported Past Drug Use History: Marijuana - Past Family History Mother Family Medical History: No Reported History Brother(s) Family Medical History: Seizure Disorder General Exam - General Exam Comments Initial Comments: Alert and oriented 19-year-old female. No significant distress. Limitations: no limitations General appearance: alert, in no apparent distress Head exam: Present: atraumatic, normocephalic, normal inspection Eye exam: Present: normal appearance, PERRL, EOMI. Absent: scleral icterus, conjunctival injection, periorbital swelling ENT exam: Present: normal exam, mucous membranes moist Neck exam: Present: normal inspection. Absent: tenderness, meningismus, lymphadenopathy Respiratory exam: Present: normal lung sounds bilaterally. Absent: respiratory distress, wheezes, rales, rhonchi, stridor Cardiovascular Exam: Present: regular rate, normal rhythm, normal heart sounds. Absent: systolic murmur, diastolic murmur, rubs, gallop, clicks GI/Abdominal exam: Present: soft, tenderness (Suprapubic tenderness, and right CVA tenderness), normal bowel sounds. Absent: distended, guarding, rebound, rigid Back exam: Present: normal inspection Neurological exam: Present: alert, oriented X3, CN II-XII intact Course Vital Signs 01/31/20 10:58 Temperature 97.9 F Pulse Rate 110 H Respiratory 18 Rate Blood Pressure 127/71 O2 Sat by Pulse 98 Oximetry Medical Decision Making - Medical Decision Making 19-year-old female presents for in terms today with lower abdominal discomfort since Wednesday, discuss concern for some right-sided flank pain related to a kidney stone. Patient states that she's had no nausea or vomiting. She is has lower abdominaltenderness. also states that she's had some episodes of diarrhea for the past 2 days after a large bowel movement does report frequent constipation and ventilator diarrhea. Discussed the Patient may have IBS. She is also 2 months . She denies is vaginal discharge. Pelvic exam is benign with no discharge no adnexal significant tenderness. Negative chandelier sign. Patient at this time has was within normal lab work. Urinalysis did have some hematuria. She had a computed tomography scan completed which shows evidence of mild colitis, and evidence of nephrocalcinosis. No obstructing kidney stones at this time. Discussed that likely related to patient's slight hematuria. I discussed that findings patient's abdominal pain seems most likely related to colitis. We'll put the Patient on Bentyl. I discussed the Patient needs a close follow-up with primary care doctor in regards all findings including nephrocalcinosis and colitis and she may need further evaluation by urology and GI. - Lab Data Result diagrams: 01/31/20 12:00 01/31/20 12:00 Lab Results 01/31/20 01/31/20 01/31/20 Range/Units 11:45 11:45 12:00 WBC 10.6 (3.8-10.6) k/uL RBC 4.83 (3.80-5.40) m/uL Hgb 13.8 (11.4-16.0) gm/dL Hct 43.3 (34.0-46.0) % MCV 89.5 (80.0-100.0) fL MCH 28.5 (25.0-35.0) pg MCHC 31.8 (31.0-37.0) g/dL RDW 12.0 (11.5-15.5) % Plt Count 259 (150-450) k/uL Neutrophils % 83 % Lymphocytes % 8 % Monocytes % 6 % Eosinophils % 1 % Basophils % 0 % Neutrophils # 8.8 H (1.3-7.7) k/uL Lymphocytes # 0.9 L (1.0-4.8) k/uL Monocytes # 0.7 (0-1.0) k/uL Eosinophils # 0.1 (0-0.7) k/uL Basophils # 0.0 (0-0.2) k/uL PT (9.0-12.0) sec INR (<1.2) APTT (22.0-30.0) sec Sodium (137-145) mmol/L Potassium (3.5-5.1) mmol/L Chloride (98-107) mmol/L Carbon Dioxide (22-30) mmol/L Anion Gap mmol/L BUN (7-17) mg/dL Creatinine (0.52-1.04) mg/dL Est GFR (CKD-EPI)AfAm (>60 ml/min/1.73 sqM) Est GFR (CKD-EPI)NonAf (>60 ml/min/1.73 sqM) Glucose (74-99) mg/dL Calcium (8.4-10.2) mg/dL Total Bilirubin (0.2-1.3) mg/dL AST (14-36) U/L ALT (4-34) U/L Alkaline Phosphatase (38-126) U/L Total Protein (6.3-8.2) g/dL Albumin (3.5-5.0) g/dL Amylase (30-110) U/L Lipase (23-300) U/L Urine Color Yellow Urine Appearance Clear (Clear) Urine pH 6.0 (5.0-8.0) Ur Specific [place] 1.027 (1.001-1.035) Urine Protein Trace H (Negative) Urine Glucose (UA) Negative (Negative) Urine Ketones 1+ H (Negative) Urine Blood Small H (Negative) Urine Nitrite Negative (Negative) Urine Bilirubin Negative (Negative) Urine Urobilinogen <2.0 (<2.0) mg/dL Ur Leukocyte Esterase Negative (Negative) Urine RBC 6 H (0-5) /hpf Urine WBC 1 (0-5) /hpf Ur Squamous Epith Cells 1 (0-4) /hpf Urine Bacteria Rare H (None) /hpf Urine Mucus Rare H (None) /hpf Urine HCG, Qual Not Detected (Not Detectd) 01/31/20 01/31/20 Range/Units 12:00 12:00 WBC (3.8-10.6) k/uL RBC (3.80-5.40) m/uL Hgb (11.4-16.0) gm/dL Hct (34.0-46.0) % MCV (80.0-100.0) fL MCH (25.0-35.0) pg MCHC (31.0-37.0) g/dL RDW (11.5-15.5) % Plt Count (150-450) k/uL Neutrophils % % Lymphocytes % % Monocytes % % Eosinophils % % Basophils % % Neutrophils # (1.3-7.7) k/uL Lymphocytes # (1.0-4.8) k/uL Monocytes # (0-1.0) k/uL Eosinophils # (0-0.7) k/uL Basophils # (0-0.2) k/uL PT 10.3 (9.0-12.0) sec INR 1.0 (<1.2) APTT 26.8 (22.0-30.0) sec Sodium 137 (137-145) mmol/L Potassium 3.9 (3.5-5.1) mmol/L Chloride 104 (98-107) mmol/L Carbon Dioxide 22 (22-30) mmol/L Anion Gap 11 mmol/L BUN 8 (7-17) mg/dL Creatinine 0.58 (0.52-1.04) mg/dL Est GFR (CKD-EPI)AfAm >90 (>60 ml/min/1.73 sqM) Est GFR (CKD-EPI)NonAf >90 (>60 ml/min/1.73 sqM) Glucose 84 (74-99) mg/dL Calcium 9.7 (8.4-10.2) mg/dL Total Bilirubin 0.4 (0.2-1.3) mg/dL AST 44 H (14-36) U/L ALT 41 H (4-34) U/L Alkaline Phosphatase 89 (38-126) U/L Total Protein 7.8 (6.3-8.2) g/dL Albumin 4.8 (3.5-5.0) g/dL Amylase 59 (30-110) U/L Lipase 40 (23-300) U/L Urine Color Urine Appearance (Clear) Urine pH (5.0-8.0) Ur Specific [place] (1.001-1.035) Urine Protein (Negative) Urine Glucose (UA) (Negative) Urine Ketones (Negative) Urine Blood (Negative) Urine Nitrite (Negative) Urine Bilirubin (Negative) Urine Urobilinogen (<2.0) mg/dL Ur Leukocyte Esterase (Negative) Urine RBC (0-5) /hpf Urine WBC (0-5) /hpf Ur Squamous Epith Cells (0-4) /hpf Urine Bacteria (None) /hpf Urine Mucus (None) /hpf Urine HCG, Qual (Not Detectd) - Radiology Data Radiology results: report reviewed No forms renal stones or hydronephrosis is seen bilaterally. 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 Possible mild to moderate uncomplicated proximal to mild acute colitis. Correlate clinically. Differential includes infectious and inflammatory etiologies. KUB shows on obstructive bowel gas pattern. No radiopaque colliculi appreciated abdomen or pelvis. Disposition Clinical Impression: Colitis, Nephrolithiasis Disposition: HOME SELF-CARE Condition: Stable Instructions (If sedation given, give patient instructions): Renal Colic (ED), Colitis (ED) Additional Instructions: Patient is a follow-up with your primary care doctor regards to CT findings. Recommended a clear liquid bland diet for the next few days. Patient continues Bentyl to help with bowel movements. Return to the emergency department if any alarming signs or symptoms occur. Is patient prescribed a controlled substance at d/c from ED?: No Referrals: Ulises Robin DO [Primary Care Provider] - 1-2 days Time of Disposition: 14:19
[2020-01-31 12:02] LABS: Appearance,Urine Clear (Clear); Bacteria,Urine Rare /hpf; Bilirubin,Urine Negative (Negative); Blood,Urine Small (Negative); Color,Urine Yellow; Glucose,Urine (UA) Negative (Negative); Ketones,Urine 1+ (Negative); Leukocyte Esterase,Urine Negative (Negative); Mucus,Urine Rare /hpf; Nitrite,Urine Negative (Negative); Protein,Urine Trace (Negative); RBC,Urine 6 /hpf (0-5); Specific Gravity,Urine 1.027 (1.001-1.035); Squamous Epithelial Cell,Urine 1 /hpf (0-4); Urobilinogen,Urine <2.0 mg/dL (<2.0); WBC,Urine 1 /hpf (0-5)
[2020-01-31 12:20] LABS: Basophils % (A) 0 %; Eosinophils # (A) 0.1 k/uL (0-0.7); Eosinophils % (A) 1 %; HCT 43.3 % (34.0-46.0); HGB 13.8 gm/dL (11.4-16.0); Lymphocytes # (A) 0.9 k/uL (1.0-4.8); Lymphocytes % (A) 8 %; MCH 28.5 pg (25.0-35.0); MCHC 31.8 g/dL (31.0-37.0); MCV 89.5 fL (80.0-100.0); Mean Platelet Volume 7.5; Monocytes # (A) 0.7 k/uL (0-1.0); Monocytes % (A) 6 %; Neutrophils # (A) 8.8 k/uL (1.3-7.7); Neutrophils % (A) 83 %; Platelet Count 259 k/uL (150-450); RBC 4.83 m/uL (3.80-5.40); WBC 10.6 k/uL (3.8-10.6)
[2020-01-31 12:29] LABS: Partial Thromboplastin Time 26.8 sec (22.0-30.0); Prothrombin Time 10.3 sec (9.0-12.0)
[2020-01-31 12:38] LABS: ALT 41 U/L (4-34); AST 44 U/L (14-36); African American GFR (CKD) >90 (>60 ml/min/1.73 sqM); Albumin 4.8 g/dL (3.5-5.0); Alkaline Phosphatase 89 U/L (38-126); Amylase 59 U/L (30-110); Anion Gap 11 mmol/L; Blood Urea Nitrogen 8 mg/dL (7-17); Calcium 9.7 mg/dL (8.4-10.2); Carbon Dioxide 22 mmol/L (22-30); Chloride 104 mmol/L (98-107); Glucose 84 mg/dL (74-99); Non-African American GFR(CKD) >90 (>60 ml/min/1.73 sqM); Potassium 3.9 mmol/L (3.5-5.1); Sodium 137 mmol/L (137-145); Total Bilirubin 0.4 mg/dL (0.2-1.3); Total Protein 7.8 g/dL (6.3-8.2)
--- NOTE | 2020-01-31 12:41 | XR ---
EXAMINATION TYPE: XR KUB DATE OF EXAM: 01/31/2020 12:09 PM CLINICAL HISTORY: Abdominal pain. History of nephrolithiasis. TECHNIQUE: Single upright image of the abdomen is obtained. COMPARISON: None. FINDINGS: Scattered gas is seen in non-distended small bowel loops. Gas and fecal material is seen in non-distended colon. There is no pneumoperitoneum or abnormal calcification appreciated. The lung ba ses are clear and the osseous structures are intact. IMPRESSION: Nonobstructive bowel gas pattern. No radiopaque calculi appreciated in the abdomen or pelvis.
--- NOTE | 2020-01-31 13:20 | CT ---
EXAMINATION TYPE: CT abdomen pelvis wo con DATE OF EXAM: 01/31/2020 HISTORY: Flank and abdominal pain, history of kidney stones CT DLP: 285.3 mGycm. Automated Exposure Control for Dose Reduction was Utilized. TECHNIQUE: CT scan of the abdomen and pelvis is performed without oral or IV contrast. COMPARISON: Abdominal x-ray earlier today. CT abdomen and pelvis July 22, 2010 FINDINGS: Within the limitations of a non-contrast study, the following observations are made. LUNG BASES: No significant abnormality is appreciated. LIVER/GB: No significant abnormality is appreciated. PANCREAS: No significant abnormality is seen. SPLEEN: No significant abnormality is seen. ADRENALS: No significant abnormality is seen. KIDNEYS: Central hyperdensity of the renal pyramids bilaterally is suspicious for underlying medullar y nephrocalcinosis. No formed focal renal calculi on current study. No hydronephrosis or obstructing ureteral calculi bilaterally. No intraluminal calculi in the poorly distended bladder. Bladder wall t hickness upper limits of normal for poorly distended bladder. BOWEL: Suboptimal evaluation of bowel without enteric contrast. No suspicious small and large bowel d ilatation. Bruy-ib-uffslamy wall thickening involving right colon after cecum extending to the hepati c flexure into the mid to distal transverse colon. Appendix noted not dilated ascending from the medi al aspect of the cecum. GENITAL ORGANS: Retroverted uterus. Adjacent pelvic phleboliths. Ovaries symmetric and within normal limits in size. Trace fluid in the pelvis is nonspecific in menstruating female. LYMPH NODES: No greater than 1cm abdominal or pelvic lymph nodes are appreciated. OSSEOUS STRUCTURES: No significant abnormality is seen. OTHER: Overlying metallic umbilical ornament is incidentally noted. IMPRESSION: No formed renal stones or hydronephrosis is seen bilaterally. Underlying medullary nephro calcinosis suspected. Possible mild to moderate uncomplicated proximal to mid acute colitis. Correlat e clinically. Differential includes infectious and inflammatory etiologies.
[2020-01-31 14:52] VITALS: BP 122/70; PULSE 68; TEMP 97
== END 2020-01-31 14:53 | disposition home or self-care (01) ==
LOC: EC 10:53
DX: N20.0 Calculus of kidney (principal); K52.9 Noninfective gastroenteritis and colitis, unspecified; N29 Other disorders of kidney and ureter in diseases classified elsewhere; F17.200 Nicotine dependence, unspecified, uncomplicated; Z88.0 Allergy status to penicillin
CPT/HCPCS: 36415; 80053; 82150; 83690; 85025; 85610; 85730; 81001; 81025; 87808; 87491; 87070; 87591; 87086; 74018; 74176; 99285; 96374; 96375; 96361; J2405; J1885; 99284

== ENCOUNTER → 2020-07-12 | Outpatient (CLI) | payer BC, OTHER ==
--- NOTE | 2020-07-13 17:43 | CT ---
EXAMINATION TYPE: CT iac wo con DATE OF EXAM: 07/12/2020 COMPARISON: 08/24/2016 HISTORY: right ear infection CT DLP: 150 mGycm Automated exposure control for dose reduction was used. TECHNIQUE: Axial images 1 mm thick sections. Reconstructed images in the coronal plane. Studies perfo rmed without intravenous contrast. FINDINGS: There is left septal deviation. Maxillary spine is intact. Nasal bones are intact. Maxillary sinuses ethmoid air cells. Sphenoid sinuses and frontal sinuses are clear. Left mastoid air cells are clear. There is been a right mastoidectomy. Left incus and malleus appear normal. Semicircular canals are normal. Left Internal auditory canal is normal. There is a high riding right jugular bulb. Right internal auditory canal appears patent. Fossa of Rosenmuller and torus tubarius are normal. Cerebellar pontine angles are normal. No expansio n or erosion of the internal auditory canals is evident. External auditory canals and left middle ear is clear. Right incus and malleus are poorly visualized. Some displacement of the tympanic membrane is not excl uded. Scutum on the left is normal. Scutum on the right is not identified. There may be some soft tis lydia within the attic. Clinical consideration for cholesteatoma is recommended. There may be prior stapes and incus prosthesis placement on the right. Hyperdense with some beam hard ening artifact may be present, series 3 image 58. Additionally, a metallic type density may be within the aerated petrous ridge adjacent to the foramen Lacerum and carotid artery. Series 3 image 50. Thi s was present previously. IMPRESSION: 1. SOFT TISSUE WITHIN THE RIGHT MIDDLE EAR WITHOUT CLEAR DEMONSTRATION OF THE RIGHT INCUS AND MALLEU S. CORRELATE FOR CHOLESTEATOMA. 2. THERE IS IMPROVED AERATION OF THE RIGHT MIDDLE EAR COMPARED TO THE PREVIOUS EXAM 3. INTERNAL AUDITORY CANALS APPEAR NORMAL.
== END | disposition home or self-care (01) ==
LOC: RADCTMAIN 16:37
PROVIDERS: ATTEND Otolaryngology Otology & Neurotology
DX: H71.21 Cholesteatoma of mastoid, right ear (principal); H71.01 Cholesteatoma of attic, right ear
CPT/HCPCS: 70480

== ENCOUNTER → 2020-12-05 | Outpatient (CLI) | payer BC, OTHER ==
--- NOTE | 2020-12-05 13:52 | MR ---
EXAMINATION TYPE: MR brain and iac wo/w con DATE OF EXAM: 12/05/2020 12:50 PM COMPARISON: CT 07/12/2020 HISTORY: Hearing loss TECHNIQUE: Multiplanar and multispin-echo imaging of the brain was performed both before and after the administr ation of contrast. High-resolution images are obtained of the internal auditory canals performed uti lizing 4.5 mL intravenous Gadavist contrast. The ventricles, basal cisterns and sulci overlying the cerebral convexities are within normal limits. There is no evidence for midline shift or mass effect. Acute intracranial hemorrhage or extra-axial collection is not evident. There are no abnormal areas of increased or decreased signal intensity within the brain parenchyma. High-resolution imaging of the internal auditory canals fails demonstrate evidence for an enhancing a coustic schwannoma or cerebellopontine cistern angle mass. Please note I do recommend CT for improved osseous characterization. Left-sided internal and external auditory canals appear to be unremarkable. There is poor visualization of the right-sided incus and malleus. Poor visualization of the scutum on the right is noted. It is difficult to exclude soft tiss ue within the attic. Correlate clinically for cholesteatoma. Partial right-sided mastoidectomy change s are present. Left-sided mastoid air cells are well-aerated. Left-sided structures appear to be with in normal limits. Following contrast administration, there is no evidence for pathologic enhancement or enhancing mass. The paranasal sinuses and mastoid air cells are well-aerated. IMPRESSION: 1. No evidence of acoustic schwannoma or cerebellopontine angle mass. 2.Please note I do recommend CT for improved osseous characterization. Left-sided internal and [facility] al auditory canals appear to be unremarkable. There is poor visualization of the right-sided incus an d malleus. Poor visualization of the scutum on the right is noted. It is difficult to exclude soft ti ssue within the attic. Correlate clinically for cholesteatoma. Partial right-sided mastoidectomy chung ges are present. Left-sided mastoid air cells are well-aerated.
== END | disposition home or self-care (01) ==
LOC: RADMRIMAIN 11:19
PROVIDERS: ATTEND Otolaryngology Otology & Neurotology
DX: H91.90 Unspecified hearing loss, unspecified ear (principal)
CPT/HCPCS: 70553; A9585

== ENCOUNTER → 2021-09-29 | Outpatient (CLI) | payer BC, OTHER ==
--- NOTE | 2021-09-30 06:06 | MR ---
EXAMINATION TYPE: MR brain and iac wo/w con DATE OF EXAM: 09/29/2021 COMPARISON: 12/05/2020 HISTORY: Cholesteatoma follow-up. Hx surgery. CONTRAST: Standard multiplanar, multisequence MRI departmental protocol images were obtained without contrast a nd with 4.5 mL intravenous Gadavist gadolinium contrast. Ventricles have normal size. There is no mass effect or midline shift. There is no sign of intracrani al hemorrhage. Rincon and white matter structures have fairly normal signal pattern. There is no eviden ce of cerebral edema. There is irregular 1.5 cm area of signal on the T2 and FLAIR images involving t he right temporal bone at the petrous pyramid and consistent with postsurgical changes. This appears stable compared to previous exam. The internal auditory canals appear normal. There is no evidence of cerebellopontine angle mass. Brainstem appears normal. Corpus callosum appears normal. There is no e vidence of orbital mass. Sella turcica appears normal. IMPRESSION: Postsurgical changes in the right temporal bone. This appears stable compared to old exam. No evidenc e of recurrent tumor. No acute intracranial abnormality.
== END | disposition home or self-care (01) ==
LOC: RADMRIMAIN 21:47
PROVIDERS: ATTEND Otolaryngology Otology & Neurotology
DX: Z09 Encounter for follow-up examination after completed treatment for conditions other than malignant neoplasm (principal); Z86.69 Personal history of other diseases of the nervous system and sense organs
CPT/HCPCS: 70553; A9585

== ENCOUNTER → 2022-08-20 | Outpatient (CLI) | payer BC, OTHER ==
--- NOTE | 2022-08-20 13:11 | XR ---
EXAMINATION TYPE: XR chest 2V DATE OF EXAM: 08/20/2022 COMPARISON: NONE TECHNIQUE: PA and lateral views submitted. HISTORY: Shortness of breath FINDINGS: The lungs are clear and there is no pneumothorax, pleural effusion, or focal pneumonia. Hyperinflat ion of the lungs. By fluoroscopy the heart size is normal. No overt failure. Scoliotic curvature of t he spine measures approximately 12 degrees. IMPRESSION: 1. No acute process. Correlate for asthma or COPD. 2. Scoliosis.
== END | disposition home or self-care (01) ==
LOC: RADXRYALE 10:24
PROVIDERS: ATTEND Physician Assistant
DX: M41.9 Scoliosis, unspecified (principal); R06.02 Shortness of breath
CPT/HCPCS: 71046

== ENCOUNTER → 2022-12-22 | Outpatient (CLI) | payer BC, OTHER ==
--- NOTE | 2022-12-22 14:44 | XR ---
EXAMINATION TYPE: XR chest 2V DATE OF EXAM: 12/22/2022 COMPARISON: 08/20/2022 TECHNIQUE: PA and lateral views submitted. HISTORY: Shortness of breath FINDINGS: The lungs are clear and there is no pneumothorax, pleural effusion, or focal pneumonia. Heart size normal and no overt failure. Osseous structures intact. Hyperinflation suggests COPD\asthma. Biapical pleural thickening. Scoliosis of the spine. IMPRESSION: 1. No acute process. Correlate for asthma.
== END | disposition home or self-care (01) ==
LOC: RADXRYALE 14:27
PROVIDERS: ATTEND Physician Assistant
DX: R06.02 Shortness of breath (principal); R07.89 Other chest pain
CPT/HCPCS: 71046

== ENCOUNTER → 2022-12-28 | Outpatient (CLI) | payer BC, OTHER ==
--- NOTE | 2022-12-28 16:41 | CT ---
EXAMINATION TYPE: CT angio chest CT DLP: 385 mGycm, Automated exposure control for dose reduction was used. DATE OF EXAM: 12/28/2022 4:34 PM COMPARISON: Chest radiograph 12/22/2022 CLINICAL INDICATION:Female, 22 years old with history of R06.02; Chest pain. R/O PE TECHNIQUE/CONTRAST: CTA scan of the thorax is performed with IV Contrast, patient injected with 60cc mL of Isovue 370, pu lmonary embolism protocol. MIP images are created and reviewed. FINDINGS: Pulmonary Artery: There is no evidence for a filling defect within the pulmonary vasculature to sugge st acute pulmonary embolism. The pulmonary artery is of normal size. Reflux of contrast into the IVC and hepatic veins. Lungs/Pleura: No evidence of focal consolidation, pleural effusion or pneumothorax. Biapical pleural- parenchymal scarring. No suspicious pulmonary nodule or mass. Airway: Large airways are patent. Heart: Heart is within normal limits for size.. Vasculature: No evidence of aortic aneurysm. Mediastinum: No evidence of adenopathy. Musculoskeletal: No acute osseous abnormalities Soft Tissues: Unremarkable. Lower neck: No significant findings. Upper Abdomen: No significant findings. IMPRESSION: No evidence of pulmonary embolism or acute thoracic process.
== END | disposition home or self-care (01) ==
LOC: RADCTMAIN 15:55
PROVIDERS: ATTEND Family Medicine
DX: R07.9 Chest pain, unspecified (principal); R06.02 Shortness of breath; R06.2 Wheezing
CPT/HCPCS: 71275; Q9967

== ENCOUNTER → 2023-01-07 | Outpatient (CLI) | payer BC, OTHER ==
--- NOTE | 2023-01-08 10:47 | CA ---
Transthoracic Echo Report Name: Hui Manriquez Age: 22 Gender: F : 2000 Exam Date: 01/07/2023 14:23 Exam Location: [place] [facility] Ht (in): 68 Wt (lb): 98 Ordering Physician: Ulises Robin DO Attending/Referring Phys: Elicia Li PAC Firefighter Korin Hope RDCS Procedure CPT: Indications: R06.02 R06.2 R07.9 Cardiac Hx: Technical Quality: Good Contrast 1: Total Dose (mL): Contrast 2: Total Dose (mL): MEASUREMENTS (Male / Female) Normal Values 2D ECHO LV Diastolic Diameter PLAX 3.5 cm 4.2 - 5.9 / 3.9 - 5.3 cm LV Systolic Diameter PLAX 2.3 cm IVS Diastolic Thickness 0.8 cm 0.6 - 1.0 / 0.6 - 0.9 cm LVPW Diastolic Thickness 0.8 cm 0.6 - 1.0 / 0.6 - 0.9 cm LV Relative Wall Thickness 0.5 RV Internal Dim ED PLAX 2.2 cm LA Systolic Diameter LX 2.4 cm 3.0 - 4.0 / 2.7 - 3.8 cm M-MODE Aortic Root Diameter MM 2.5 cm MV E Point Septal Separation 0.5 cm AV Cusp Separation MM 2.0 cm DOPPLER AV Peak Velocity 149.1 cm/s AV Peak Gradient 8.9 mmHg MV Area PHT 3.1 cm??? Mitral E Point Velocity 96.6 cm/s Mitral A Point Velocity 63.2 cm/s Mitral E to A Ratio 1.5 MV Deceleration Time 242.1 ms FINDINGS Left Ventricle Left ventricular ejection fraction is estimated at 55-60 %. Small left ventricular cavity. Left ventricular wall thickness normal. Right Ventricle Normal right ventricular size and function. No TR unable to estimate the right ventricular systolic pressure. Right Atrium Normal right atrial size. Left Atrium Normal left atrial size. Mitral Valve Structurally normal mitral valve. No mitral stenosis, regurgitation or prolapse. Aortic Valve Trileaflet aortic valve. No aortic valve stenosis or regurgitation. Tricuspid Valve Structurally normal tricuspid valve. No tricuspid stenosis, regurgitation or prolapse. Pulmonic Valve Structurally normal pulmonic valve. No pulmonic regurgitation. Pericardium Normal pericardium. No pericardial effusion. Aorta Normal size aortic root and proximal ascending aorta. CONCLUSIONS Normal LV systolic function. Previewed by: Dr. Jason Taylor MD (Electronically Signed) Final Date: 08 January 2023 10:46
== END | disposition home or self-care (01) ==
LOC: RADECHMAIN 14:06
PROVIDERS: ATTEND Family Medicine
DX: R07.9 Chest pain, unspecified (principal); R06.02 Shortness of breath; R06.2 Wheezing
CPT/HCPCS: 93306

== ENCOUNTER 2023-06-26 12:37 | Emergency (ER) | payer BC ==
[2023-06-26 12:49] VITALS: TEMP 98.2
[2023-06-26 13:22] LABS: Appearance,Urine Clear (Clear); Bacteria,Urine Rare /hpf; Bilirubin,Urine Negative (Negative); Blood,Urine Trace (Negative); Color,Urine Light Yellow; Glucose,Urine (UA) Negative (Negative); Ketones,Urine Negative (Negative); Leukocyte Esterase,Urine Negative (Negative); Nitrite,Urine Negative (Negative); Protein,Urine Negative (Negative); RBC,Urine 3 /hpf (0-5); Specific Gravity,Urine 1.015 (1.001-1.035); Squamous Epithelial Cell,Urine 2 /hpf (0-4); Urobilinogen,Urine <2.0 mg/dL (<2.0); WBC,Urine 2 /hpf (0-5)
--- NOTE | 2023-06-26 13:53 | ED ---
Abdominal Pain HPI - General Chief Complaint: Abdominal Pain Stated Complaint: kidney pain stomach pain Time Seen by Provider: 06/26/23 13:45 Source: patient Mode of arrival: ambulatory Limitations: no limitations - History of Present Illness Initial Comments: 23-year-old female presenting with chief complaint of left flank pain. Pain is been ongoing for a few days. Pain is located bilaterally but is worse on the left. She states that the pain does come down to about the level of the glutes. No injury or trauma. She states that she does have chronic constipation. No dysuria or hematuria. No fevers or chills. No nausea or vomiting. No loss of bowel or bladder control or saddle paresthesia. She states she was told previously that she does have stones in her kidneys, but she has never passed a stone to her knowledge. - Related Data Home Medications Medication Instructions Recorded Confirmed Acetaminophen [Tylenol Arthritis] 1,300 mg PO Q8H PRN 01/31/20 01/31/20 Previous Rx's Medication Instructions Recorded Dicyclomine [Bentyl] 10 mg PO TID #20 capsule 01/31/20 Allergies Allergy/AdvReac Type Severity Reaction Status Date / Time Penicillins Allergy Rash/Hives Verified 06/26/23 12:42 Review of Systems ROS Statement: Those systems with pertinent positive or pertinent negative responses have been documented in the HPI. ROS Other: All systems not noted in ROS Statement are negative. Past Medical History Additional Past Medical History / Comment(s): FREQUENT RIGHT EAR INFECTIONS, Chronic Constipation, Kidney infections History of Any Multi-Drug Resistant Organisms: None Reported Past Surgical History: Ear Surgery, Orthopedic Surgery Additional Past Surgical History / Comment(s): PREVIOUS MYRINGOTOMY AND TUBES X2, Pins in (R) ankle, Past Anesthesia/Blood Transfusion Reactions: No Reported Reaction Past Psychological History: No Psychological Hx Reported Smoking Status: Current every day smoker Past Alcohol Use History: None Reported Past Drug Use History: Marijuana - Past Family History Mother Family Medical History: No Reported History Brother(s) Family Medical History: Seizure Disorder General Exam Limitations: no limitations General appearance: alert, in no apparent distress Head exam: Present: atraumatic, normocephalic, normal inspection Eye exam: Present: normal appearance, EOMI Neck exam: Present: normal inspection, full ROM Respiratory exam: Present: normal lung sounds bilaterally. Absent: respiratory distress, wheezes, rales, rhonchi, stridor Cardiovascular Exam: Present: regular rate, normal rhythm, normal heart sounds. Absent: systolic murmur, diastolic murmur, rubs, gallop, clicks GI/Abdominal exam: Present: soft, tenderness (Mild tenderness to the lower ab domen). Absent: distended, guarding, rebound, rigid Back exam: Present: normal inspection, CVA tenderness (L). Absent: CVA tenderness (R), paraspinal tenderness Neurological exam: Present: alert, oriented X3 Psychiatric exam: Present: normal affect, normal mood Skin exam: Present: warm, dry, intact, normal color. Absent: rash Course Vital Signs 06/26/23 06/26/23 12:41 16:42 Temperature 98.2 F Pulse Rate 58 L 56 L Respiratory 18 20 Rate Blood Pressure 117/73 138/88 O2 Sat by Pulse 99 100 Oximetry Medical Decision Making - Medical Decision Making Was pt. sent in by a medical professional or institution (, PA, ACT ENGLISH TUTOR, urgent care, hospital, or fdc...) When possible be specific @ -No Did you speak to anyone other than the patient for history (EMS, parent, family, police, friend...)? What history was obtained from this source @ -No Did you review nursing and triage notes (agree or disagree)? Why? @ -I reviewed and agree with nursing and triage notes Were old charts reviewed (outside hosp., previous admission, EMS record, old EKG, old radiological studies, urgent care reports/EKG's, fdc records)? Report findings @ -No old charts were reviewed Differential Diagnosis (chest pain, altered mental status, abdominal pain women, abdominal pain men, vaginal bleeding, weakness, fever, dyspnea, syncope, headache, dizziness, GI bleed, back pain, seizure, CVA, palpatations, mental health, musculoskeletal)? @ -MDM Differential Abdominal Pain Women: Appendicitis, Cholecystitis, diverticulosis, ischemic bowel, pancreatitis, hepatitis, UTI, gastroenteritis, AAA, incarcerated hernia, bowel obstruction, constipation, inflammatory bowel, hepatitis, peptic ulcer disease, splenic infarction, perforated viscus, vulvitis, ovarian torsion, PID, kidney stone, placenta abruption... This is not meant to be an all-inclusive list EKG interpreted by me (3pts min.). @ -As above X-rays interpreted by me (1pt min.). @ -KUB x-ray shows no acute process. CT interpreted by me (1pt min.). @ -CT shows no acute process of the abdomen or pelvis, there does appear to be a moderate amount of constipation by my interpretation U/S interpreted by me (1pt. min.). @ -None done What testing was considered but not performed or refused? (CT, X-rays, U/S, labs)? Why? @ -None What meds were considered but not given or refused? Why? @ -None Did you discuss the management of the patient with other professionals (professionals i.e. , PA, ACT ENGLISH TUTOR, lab, RT, psych nurse, social service technician, pipe fitter helper, teacher, medical corps officer, trimming caser)? Give summary @ -No Was smoking cessation discussed for >3mins.? @ -No Was critical care preformed (if so, how long)? @ -No Were there social determinants of health that impacted care today? How? (Homele ssness, low income, unemployed, alcoholism, drug addiction, transportation, low edu. Level, literacy, decrease access to med. care, custodial, rehab)? @ -No Was there de-escalation of care discussed even if they declined (Discuss DNR or withdrawal of care, Hospice)? DNR status @ -No What co-morbidities impacted this encounter? (DM, HTN, Smoking, COPD, CAD, Cancer, CVA, ARF, Chemo, Hep., AIDS, mental health diagnosis, sleep apnea, morbid obesity)? @ -None Was patient admitted / discharged? Hospital course, mention meds given and route, prescriptions, significant lab abnormalities, going to OR and other pertinent info. @ -23-year-old female presenting with chief complaint of left-sided flank pain. Physical exam is conducted. Lab work shows no leukocytosis or anemia. CMP unremarkable. Urine shows no infectious process or bleeding and hCG is negative. CT negative for acute process or obstructive uropathy. There does appear to be a moderate amount of constipation. Patient is educated on today's findings. She will take MiraLAX at home for her symptoms.Follow-up with PCP. Report back to ER with any new or worsening symptoms. Discussed return parameters and answered all questions. Patient conveyed verbal understanding and agreed to the plan. I discussed this case in detail with my attending Dr. Turner Undiagnosed new problem with uncertain prognosis? @ -No Drug Therapy requiring intensive monitoring for toxicity (Heparin, Nitro, Insulin, Cardizem)? @ -No Were any procedures done? @ -No Diagnosis/symptom? @ -Constipation Acute, or Chronic, or Acute on Chronic? @ -Acute Uncomplicated (without systemic symptoms) or Complicated (systemic symptoms)? @ -Uncomplicated Side effects of treatment? @ -No Exacerbation, Progression, or Severe Exacerbation? @ -No Poses a threat to life or bodily function? How? (Chest pain, USA, VT, pneumonia, PE, COPD, DKA, ARF, appy, cholecystitis, CVA, Diverticulitis, Homicidal, Suicidal, threat to staff... and all critical care pts) @ -No - Lab Data Result diagrams: 06/26/23 14:49 06/26/23 14:49 Lab Results 06/26/23 06/26/23 06/26/23 Range/Units 12:47 14:49 14:49 WBC 6.3 (3.8-10.6) k/uL RBC 4.64 (3.80-5.40) m/uL Hgb 13.9 (11.4-16.0) gm/dL Hct 41.5 (34.0-46.0) % MCV 89.3 (80.0-100.0) fL MCH 30.0 (25.0-35.0) pg MCHC 33.6 (31.0-37.0) g/dL RDW 12.1 (11.5-15.5) % Plt Count 242 (150-450) k/uL MPV 7.5 Neutrophils % 50 % Lymphocytes % 41 % Monocytes % 6 % Eosinophils % 1 % Basophils % 1 % Neutrophils # 3.1 (1.3-7.7) k/uL Lymphocytes # 2.6 (1.0-4.8) k/uL Monocytes # 0.4 (0-1.0) k/uL Eosinophils # 0.1 (0-0.7) k/uL Basophils # 0.0 (0-0.2) k/uL Sodium 141 (137-145) mmol/L Potassium 3.9 (3.5-5.1) mmol/L Chloride 104 (98-107) mmol/L Carbon Dioxide 26 (22-30) mmol/L Anion Gap 11 mmol/L BUN 11 (7-17) mg/dL Creatinine 0.72 (0.52-1.04) mg/dL Est GFR (CKD-EPI)AfAm >90 (>60 ml/min/1.73 sqM) Est GFR (CKD-EPI)NonAf >90 (>60 ml/min/1.73 sqM) Glucose 87 (74-99) mg/dL Calcium 9.7 (8.4-10.2) mg/dL Total Bilirubin 0.7 (0.2-1.3) mg/dL AST 29 (14-36) U/L ALT 19 (4-34) U/L Alkaline Phosphatase 53 (38-126) U/L Total Protein 7.7 (6.3-8.2) g/dL Albumin 4.8 (3.5-5.0) g/dL HCG, Qual Not Detected Urine Color Light Yellow Urine Appearance Clear (Clear) Urine pH 7.0 (5.0-8.0) Ur Specific Winter 1.015 (1.001-1.035) Urine Protein Negative (Negative) Urine Glucose (UA) Negative (Negative) Urine Ketones Negative (Negative) Urine Blood Trace H (Negative) Urine Nitrite Negative (Negative) Urine Bilirubin Negative (Negative) Urine Urobilinogen <2.0 (<2.0) mg/dL Ur Leukocyte Esterase Negative (Negative) Urine RBC 3 (0-5) /hpf Urine WBC 2 (0-5) /hpf Ur Squamous Epith Cells 2 (0-4) /hpf Urine Bacteria Rare H (None) /hpf Disposition Clinical Impression: Constipation Disposition: HOME SELF-CARE Condition: Good Instructions (If sedation given, give patient instructions): Constipation (ED), High Fiber Diet (ED) Additional Instructions: Follow-up with PCP. Report back to ER if any new or worsening symptoms. Take MiraLAX at home as needed to relieve constipation. Is patient prescribed a controlled substance at d/c from ED?: No Referrals: Ulises Robin DO [Primary Care Provider] - 1-2 days Time of Disposition: 16:30
--- NOTE | 2023-06-26 14:08 | XR ---
EXAMINATION TYPE: XR KUB DATE OF EXAM: 06/26/2023 COMPARISON: NONE HISTORY: Pain TECHNIQUE: Single supine KUB image of the abdomen is obtained FINDINGS: Small bowel demonstrates no evidence for dilatation or air fluid levels. Gas and fecal material is seen in non-distended colon. No convincing evidence for pneumoperitoneum. No unusual calcifications. The lung bases are clear. The osseous structures are intact. IMPRESSION: 1. Overall nonobstructive bowel gas pattern.
[2023-06-26 15:15] LABS: Basophils % (A) 1 %; Eosinophils # (A) 0.1 k/uL (0-0.7); Eosinophils % (A) 1 %; HCT 41.5 % (34.0-46.0); HGB 13.9 gm/dL (11.4-16.0); Lymphocytes # (A) 2.6 k/uL (1.0-4.8); Lymphocytes % (A) 41 %; MCHC 33.6 g/dL (31.0-37.0); MCV 89.3 fL (80.0-100.0); Mean Platelet Volume 7.5; Monocytes # (A) 0.4 k/uL (0-1.0); Monocytes % (A) 6 %; Neutrophils # (A) 3.1 k/uL (1.3-7.7); Neutrophils % (A) 50 %; Platelet Count 242 k/uL (150-450); RBC 4.64 m/uL (3.80-5.40); RDW 12.1 % (11.5-15.5); WBC 6.3 k/uL (3.8-10.6)
[2023-06-26 15:32] LABS: ALT 19 U/L (4-34); AST 29 U/L (14-36); African American GFR (CKD) >90 (>60 ml/min/1.73 sqM); Albumin 4.8 g/dL (3.5-5.0); Alkaline Phosphatase 53 U/L (38-126); Anion Gap 11 mmol/L; Blood Urea Nitrogen 11 mg/dL (7-17); Calcium 9.7 mg/dL (8.4-10.2); Carbon Dioxide 26 mmol/L (22-30); Chloride 104 mmol/L (98-107); Glucose 87 mg/dL (74-99); Non-African American GFR(CKD) >90 (>60 ml/min/1.73 sqM); Potassium 3.9 mmol/L (3.5-5.1); Sodium 141 mmol/L (137-145); Total Bilirubin 0.7 mg/dL (0.2-1.3); Total Protein 7.7 g/dL (6.3-8.2)
[2023-06-26 15:55] LABS: HCG,Qualitative Serum Not Detected
--- NOTE | 2023-06-26 16:16 | CT ---
EXAMINATION TYPE: CT abdomen pelvis wo con CT DLP: 232.4 mGycm, Automated exposure control for dose reduction was used. DATE OF EXAM: 06/26/2023 3:45 PM COMPARISON: CT abdomen pelvis most recent from CLINICAL INDICATION:Female, 23 years old with history of L flank pain TECHNIQUE: Axial CT of the abdomen and pelvis. Sagittal and coronal reformats were created on a [employer] workstation. Contrast used:None. FINDINGS: LOWER CHEST: Unremarkable ABDOMEN LIVER: Unremarkable GALLBLADDER AND BILE DUCTS: Unremarkable. PANCREAS: Unremarkable. SPLEEN: Unremarkable. ADRENAL GLANDS: Unremarkable. KIDNEYS AND URETERS: No evidence of hydronephrosis or renal calculus. The ureters are unremarkable. PELVIS BLADDER: Unremarkable REPRODUCTIVE: Unremarkable. ABDOMEN & PELVIS STOMACH AND BOWEL: Stomach and duodenum are unremarkable. No evidence of bowel obstruction. PERITONEUM/RETROPERITONEUM: No evidence of pneumoperitoneum or free fluid. VASCULATURE: No evidence of aortic aneurysm. MUSCULOSKELETAL: No acute osseous abnormalities LYMPH NODES: No gross evidence for lymphadenopathy. SOFT TISSUE/ABDOMINAL WALL: Unremarkable IMPRESSION: No evidence of acute process or obstructive uropathy.
[2023-06-26 16:56] VITALS: BP 138/88; PULSE 56; RESP 20
== END 2023-06-26 16:43 | disposition home or self-care (01) ==
LOC: EC 12:37
DX: K59.00 Constipation, unspecified (principal); F17.200 Nicotine dependence, unspecified, uncomplicated; F12.90 Cannabis use, unspecified, uncomplicated; Z88.0 Allergy status to penicillin
CPT/HCPCS: 36415; 74018; 74176; 80053; 81001; 84703; 85025; 99284

== ENCOUNTER → 2023-07-19 | Outpatient (CLI) | payer BC, OTHER ==
--- NOTE | 2023-07-19 10:43 | MR ---
EXAMINATION TYPE: MR brain and iac wo/w con DATE OF EXAM: 07/19/2023 COMPARISON: 09/29/2021 HISTORY: Yearly f/u chlosteatoma TECHNIQUE: Multiplanar, multisequence images of the brain and brainstem is performed without and with IV contras t, utilizing 4.5 mL intravenous Gadavist . FINDINGS: Diffusion weighted images demonstrate no evidence of a recent infarct or other diffusion ab normality. Ventricular system is consistent with the patient's age. No midline shift or mass effect. Single focus of abnormal signal left parietal white matter is nonspecific. The cerebellar tonsils measures 5 mm below the foramen magnum compatible with Chiari I malformation. No tonsillar beaking. Sella turcica has a normal appearance. There remains an area of abnormal signal involving the right temporal bone again measuring approximat barbara 1.5 cm stable from prior exam and may be postsurgical. No pathologic enhancement with regard to the seventh\8 cranial nerve complex. Nasal septal deviation with changes of chronic sinusitis. Orbits are symmetric. Post contrast images demonstrate no abnormal enhancement. The dural venous sinuses appear patent. IMPRESSION: 1. Postsurgical changes appear stable with no new abnormality. 2. Chiari I malformation.
--- NOTE | 2023-07-19 12:15 | CT ---
EXAMINATION TYPE: CT iac wo con CT DLP: 142.70 mGycm, Automated exposure control for dose reduction was used. DATE OF EXAM: 07/19/2023 12:02 PM INDICATION: Patient age:Female; 23 years old; Reason for study: cholesteatoma; COMPARISON: 07/12/2020. MRI brain same day. TECHNIQUE: Multiple thin axial images were obtained through the temporal bones and internal auditory canals. Additional coronal reformatted images were obtained. No IV contrast was utilized. STENVER a nd POSCHL views were created on a separate work station. CT Contrast: Contrast used: none. FINDINGS: Right Temporal Bone: Similar morphology to the right temporal bone was post surgical change. There is suspected interval s urgical changes there is no bony covering over the transverse sinus is no longer visualized on series 3 image 38.. There is soft tissue extending over the external auditory canal the tympanic membrane i s not definitively visualized. The ossicles are not definitively visualized. Prussak's space appears to be surgically absent. There is no evidence of osseous erosion and the tegmen tympani is intact. Inner Ear: Cochlea, vestibule and semi circular canals are unremarkable. No evidence of carotid tamir l dehiscence. Two and a half turns of the cochlea are identified. The vestibular aqueduct is not enl arged. Mastoid Air Cells: Postsurgical changes to the mastoid air cells. The tegmen mastoideum is intact. Th e aditus ad antrum appears surgically absent.. Internal Auditory Canal: The internal auditory canal is unremarkable. Left Temporal Bone: External Ear: The external auditory canal is unremarkable, The tympanic membrane is present and unrem arkable. Middle Ear: The ossicles demonstrate a normal appearance. Prussak's space is clear and the scutum i s intact. There is no evidence of osseous erosion and the tegmen tympani is intact. Inner Ear: Cochlea, vestibule and semi circular canals are unremarkable. No evidence of carotid tamir l dehiscence. Two and a half turns of the cochlea are identified. The vestibular aqueduct is not enl arged. Mastoid Air Cells: The mastoid air cells are clear. The tegmen mastoideum is intact. The aditus ad an trum is clear. Internal Auditory Canal: The internal auditory canal is unremarkable. IMPRESSION: 1. Postsurgical changes with new loss of bony covering of the right transverse sinus. No evidence fo r middle ear effusion. The external auditory canal is likely surgically closed, similar prior. 2. The left temporal bone is without abnormality.
== END | disposition home or self-care (01) ==
LOC: RADCTMAIN 09:09
PROVIDERS: ATTEND Otolaryngology Otology & Neurotology
DX: H71.21 Cholesteatoma of mastoid, right ear (principal); G93.5 Compression of brain; Z98.890 Other specified postprocedural states
CPT/HCPCS: 70480; 70553; A9585

== ENCOUNTER 2023-08-08 23:38 | Emergency (ER) | payer BC, OTHER ==
--- NOTE | 2023-08-09 00:35 | ED ---
Abdominal Pain HPI - General Chief Complaint: Abdominal Pain Stated Complaint: Abdominal Pain Time Seen by Provider: 08/09/23 00:35 Source: patient Mode of arrival: ambulatory Limitations: no limitations - History of Present Illness Initial Comments: 23-year-old female with no prior abdominal surgeries presents to the ED with a chief complaint of abdominal pain. Patient states yesterday started to treat his pain of the right lower abdomen. Since yesterday, reports pain has increased in severity. Associated nausea and vomiting onset today. No chest pain or shortness of breath. No other complaints. - Related Data Home Medications Medication Instructions Recorded Confirmed Acetaminophen [Tylenol Arthritis] 1,300 mg PO Q8H PRN 01/31/20 01/31/20 Previous Rx's Medication Instructions Recorded Dicyclomine [Bentyl] 10 mg PO TID #20 capsule 01/31/20 Allergies Allergy/AdvReac Type Severity Reaction Status Date / Time Penicillins Allergy Rash/Hives Verified 08/09/23 00:27 Review of Systems ROS Statement: Those systems with pertinent positive or pertinent negative responses have been documented in the HPI. ROS Other: All systems not noted in ROS Statement are negative. Past Medical History Additional Past Medical History / Comment(s): FREQUENT RIGHT EAR INFECTIONS, Chronic Constipation, Kidney infections History of Any Multi-Drug Resistant Organisms: None Reported Past Surgical History: Ear Surgery, Orthopedic Surgery Additional Past Surgical History / Comment(s): PREVIOUS MYRINGOTOMY AND TUBES X2, Pins in (R) ankle, Past Anesthesia/Blood Transfusion Reactions: No Reported Reaction Past Psychological History: Anxiety, Depression Smoking Status: Current every day smoker Past Alcohol Use History: None Reported Past Drug Use History: Marijuana - Past Family History Mother Family Medical History: No Reported History Brother(s) Family Medical History: Seizure Disorder General Exam Limitations: no limitations General appearance: alert Neck exam: Present: normal inspection GI/Abdominal exam: Present: soft (Diffuse tenderness to palpation. No rebound guarding or rigidity.) Extremities exam: Present: normal inspection Back exam: Present: normal inspection Neurological exam: Present: alert, oriented X3 Skin exam: Present: warm, dry Course Vital Signs 08/09/23 00:28 Temperature 98.3 F Pulse Rate 90 Respiratory 18 Rate Blood Pressure 112/82 O2 Sat by Pulse 90 L Oximetry Medical Decision Making - Medical Decision Making Was pt. sent in by a medical professional or institution (Dr., PA, SENIOR COMPENSATION CONSULTANT, urgent care, hospital, or custodial...) When possible be specific @ -No Did you speak to anyone other than the patient for history (EMS, parent, family, police, friend...)? What history was obtained from this source @ -No Did you review nursing and triage notes (agree or disagree)? Why? @ -I reviewed and agree with nursing and triage notes Were old charts reviewed (outside hosp., previous admission, EMS record, old EKG, old radiological studies, urgent care reports/EKG's, custodial records)? Report findings @ -No old charts were reviewed Differential Diagnosis (chest pain, altered mental status, abdominal pain women, abdominal pain men, vaginal bleeding, weakness, fever, dyspnea, syncope, headache, dizziness, GI bleed, back pain, seizure, CVA, palpatations, mental health, musculoskeletal)? @ -Differential Abdominal Pain Women: Appendicitis, Cholecystitis, diverticulosis, ischemic bowel, pancreatitis, hepatitis, UTI, gastroenteritis, AAA, incarcerated hernia, bowel obstruction, constipation, inflammatory bowel, hepatitis, peptic ulcer disease, splenic infarction, perforated viscus, vulvitis, ovarian torsion, PID, kidney stone, placenta abruption, this is not meant to be an all-inclusive list EKG interpreted by me (3pts min.). @ -None X-rays interpreted by me (1pt min.). @ -None done CT interpreted by me (1pt min.). @ -CT abdomen and pelvis interpreted by me shows no acute finding. U/S interpreted by me (1pt. min.). @ -None done What testing was considered but not performed or refused? (CT, X-rays, U/S, labs)? Why? @ -None What meds were considered but not given or refused? Why? @ -None Did you discuss the management of the patient with other professionals (professionals i.e. YANELY Tyson, SENIOR COMPENSATION CONSULTANT, lab, RT, psych nurse, social media strategist, food quality technician, teacher, surveillance officer, lining caser)? Give summary @ -No Was smoking cessation discussed for >3mins.? @ -No Was critical care preformed (if so, how long)? @ -No Were there social determinants of health that impacted care today? How? (Homelessness, low income, unemployed, alcoholism, drug addiction, transportation, low edu. Level, literacy, decrease access to med. care, correction, rehab)? @ -No Was there de-escalation of care discussed even if they declined (Discuss DNR or withdrawal of care, Hospice)? DNR status @ -No What co-morbidities impacted this encounter? (DM, HTN, Smoking, COPD, CAD, Cancer, CVA, ARF, Chemo, Hep., AIDS, mental health diagnosis, sleep apnea, morbid obesity)? @ -None Was patient admitted / discharged? Hospital course, mention meds given and route, prescriptions, significant lab abnormalities, going to OR and other pertinent info. @ -Discharge 23-year-old female presents to the ED with right lower abdominal pain nausea and vomiting over the past 2 days. Laboratory studies reviewed. Labs including CBC, CMP, chemistry panel largely unremarkable. Lactic acid was minimally elevated at 2.8 however patient does admit to vomiting. No other remarkable findings. She had improvement of symptoms with Toradol and Zofran. CT abdomen and pelvis revealed no acute findings. At this time vital signs stable afebrile. Patient discharged home in stable condition. Discussed return precautions patient verbalized route. Undiagnosed new problem with uncertain prognosis? @ -No Drug Therapy requiring intensive monitoring for toxicity (Heparin, Nitro, Insulin, Cardizem)? @ -No Were any procedures done? @ -No Diagnosis/symptom? @ -Abdominal pain Acute, or Chronic, or Acute on Chronic? @ -Acute Uncomplicated (without systemic symptoms) or Complicated (systemic symptoms)? @ -Uncomplicated Side effects of treatment? @ -No Exacerbation, Progression, or Severe Exacerbation? @ -No Poses a threat to life or bodily function? How? (Chest pain, [place], [place], pneumonia, PE, COPD, DKA, ARF, appy, cholecystitis, CVA, Diverticulitis, Homicidal, Suicidal, threat to staff... and all critical care pts) @ -No - Lab Data Result diagrams: 08/09/23 00:59 08/09/23 00:59 Lab Results 08/09/23 08/09/23 08/09/23 Range/Units 00:59 00:59 00:59 WBC 9.6 (3.8-10.6) k/uL RBC 5.44 H (3.80-5.40) m/uL Hgb 16.1 H (11.4-16.0) gm/dL Hct 47.1 H (34.0-46.0) % MCV 86.5 (80.0-100.0) fL MCH 29.6 (25.0-35.0) pg MCHC 34.2 (31.0-37.0) g/dL RDW 12.1 (11.5-15.5) % Plt Count 246 (150-450) k/uL MPV 7.6 Neutrophils % 86 % Lymphocytes % 8 % Monocytes % 5 % Eosinophils % 1 % Basophils % 0 % Neutrophils # 8.2 H (1.3-7.7) k/uL Lymphocytes # 0.8 L (1.0-4.8) k/uL Monocytes # 0.4 (0-1.0) k/uL Eosinophils # 0.1 (0-0.7) k/uL Basophils # 0.0 (0-0.2) k/uL PT 11.5 (10.0-12.5) sec INR 1.1 (<1.2) APTT 27.4 (22.0-30.0) sec Sodium (137-145) mmol/L Potassium (3.5-5.1) mmol/L Chloride (98-107) mmol/L Carbon Dioxide (22-30) mmol/L Anion Gap mmol/L BUN (7-17) mg/dL Creatinine (0.52-1.04) mg/dL Est GFR (CKD-EPI)AfAm (>60 ml/min/1.73 sqM) Est GFR (CKD-EPI)NonAf (>60 ml/min/1.73 sqM) Glucose (74-99) mg/dL Plasma Lactic Acid Félix (0.7-2.0) mmol/L Calcium (8.4-10.2) mg/dL Total Bilirubin (0.2-1.3) mg/dL AST (14-36) U/L ALT (4-34) U/L Alkaline Phosphatase (38-126) U/L Total Protein (6.3-8.2) g/dL Albumin (3.5-5.0) g/dL Amylase (30-110) U/L Lipase (23-300) U/L Urine Color Yellow Urine Appearance Clear (Clear) Urine pH 5.5 (5.0-8.0) Ur Specific [place] 1.032 (1.001-1.035) Urine Protein Trace H (Negative) Urine Glucose (UA) Negative (Negative) Urine Ketones 4+ H (Negative) Urine Blood Moderate H (Negative) Urine Nitrite Negative (Negative) Urine Bilirubin Negative (Negative) Urine Urobilinogen <2.0 (<2.0) mg/dL Ur Leukocyte Esterase Negative (Negative) Urine RBC 8 H (0-5) /hpf Urine WBC 4 (0-5) /hpf Ur Squamous Epith Cells 3 (0-4) /hpf Urine Mucus Rare H (None) /hpf Urine HCG, Qual (Not Detectd) 08/09/23 08/09/23 08/09/23 Range/Units 00:59 00:59 00:59 WBC (3.8-10.6) k/uL RBC (3.80-5.40) m/uL Hgb (11.4-16.0) gm/dL Hct (34.0-46.0) % MCV (80.0-100.0) fL MCH (25.0-35.0) pg MCHC (31.0-37.0) g/dL RDW (11.5-15.5) % Plt Count (150-450) k/uL MPV Neutrophils % % Lymphocytes % % Monocytes % % Eosinophils % % Basophils % % Neutrophils # (1.3-7.7) k/uL Lymphocytes # (1.0-4.8) k/uL Monocytes # (0-1.0) k/uL Eosinophils # (0-0.7) k/uL Basophils # (0-0.2) k/uL PT (10.0-12.5) sec INR (<1.2) APTT (22.0-30.0) sec Sodium 137 (137-145) mmol/L Potassium 4.3 (3.5-5.1) mmol/L Chloride 100 (98-107) mmol/L Carbon Dioxide 22 (22-30) mmol/L Anion Gap 15 mmol/L BUN 13 (7-17) mg/dL Creatinine 0.63 (0.52-1.04) mg/dL Est GFR (CKD-EPI)AfAm >90 (>60 ml/min/1.73 sqM) Est GFR (CKD-EPI)NonAf >90 (>60 ml/min/1.73 sqM) Glucose 85 (74-99) mg/dL Plasma Lactic Acid Félix 2.8 H* (0.7-2.0) mmol/L Calcium 10.3 H (8.4-10.2) mg/dL Total Bilirubin 1.5 H (0.2-1.3) mg/dL AST 30 (14-36) U/L ALT 21 (4-34) U/L Alkaline Phosphatase 70 (38-126) U/L Total Protein 9.0 H (6.3-8.2) g/dL Albumin 5.5 H (3.5-5.0) g/dL Amylase 75 (30-110) U/L Lipase 39 (23-300) U/L Urine Color Urine Appearance (Clear) Urine pH (5.0-8.0) Ur Specific [place] (1.001-1.035) Urine Protein (Negative) Urine Glucose (UA) (Negative) Urine Ketones (Negative) Urine Blood (Negative) Urine Nitrite (Negative) Urine Bilirubin (Negative) Urine Urobilinogen (<2.0) mg/dL Ur Leukocyte Esterase (Negative) Urine RBC (0-5) /hpf Urine WBC (0-5) /hpf Ur Squamous Epith Cells (0-4) /hpf Urine Mucus (None) /hpf Urine HCG, Qual Not Detected (Not Detectd) Disposition Clinical Impression: Abdominal pain Disposition: HOME SELF-CARE Condition: Good Instructions (If sedation given, give patient instructions): Abdominal Pain (ED) Additional Instructions: Please return to the Emergency Department if symptoms worsen or any other concerns. Follow up with your primary care provider Is patient prescribed a controlled substance at d/c from ED?: No Referrals: Ulises Robin DO [Primary Care Provider] - 1-2 days Time of Disposition: 02:35
[2023-08-09] MEDS ORDERED: SODIUM CHLORIDE 0.9% 1,000 ML IV STA (00:37)
[2023-08-09] MEDS ORDERED: ONDANSETRON 4 MG/2 ML VIAL IVP STA (00:37)
[2023-08-09 01:04] VITALS: RESP 18
[2023-08-09 01:16] LABS: Basophils % (A) 0 %; Eosinophils # (A) 0.1 k/uL (0-0.7); Eosinophils % (A) 1 %; HCT 47.1 % (34.0-46.0); HGB 16.1 gm/dL (11.4-16.0); Lymphocytes # (A) 0.8 k/uL (1.0-4.8); Lymphocytes % (A) 8 %; MCH 29.6 pg (25.0-35.0); MCHC 34.2 g/dL (31.0-37.0); MCV 86.5 fL (80.0-100.0); Mean Platelet Volume 7.6; Monocytes # (A) 0.4 k/uL (0-1.0); Monocytes % (A) 5 %; Neutrophils # (A) 8.2 k/uL (1.3-7.7); Neutrophils % (A) 86 %; Platelet Count 246 k/uL (150-450); RBC 5.44 m/uL (3.80-5.40); RDW 12.1 % (11.5-15.5); WBC 9.6 k/uL (3.8-10.6)
[2023-08-09 01:24] LABS: Appearance,Urine Clear (Clear); Bilirubin,Urine Negative (Negative); Blood,Urine Moderate (Negative); Color,Urine Yellow; Glucose,Urine (UA) Negative (Negative); Ketones,Urine 4+ (Negative); Leukocyte Esterase,Urine Negative (Negative); Mucus,Urine Rare /hpf; Nitrite,Urine Negative (Negative); PH, Urine 5.5 (5.0-8.0); Protein,Urine Trace (Negative); RBC,Urine 8 /hpf (0-5); Specific Gravity,Urine 1.032 (1.001-1.035); Squamous Epithelial Cell,Urine 3 /hpf (0-4); Urobilinogen,Urine <2.0 mg/dL (<2.0); WBC,Urine 4 /hpf (0-5)
[2023-08-09 01:31] LABS: ALT 21 U/L (4-34); AST 30 U/L (14-36); African American GFR (CKD) >90 (>60 ml/min/1.73 sqM); Albumin 5.5 g/dL (3.5-5.0); Alkaline Phosphatase 70 U/L (38-126); Amylase 75 U/L (30-110); Anion Gap 15 mmol/L; Blood Urea Nitrogen 13 mg/dL (7-17); Calcium 10.3 mg/dL (8.4-10.2); Carbon Dioxide 22 mmol/L (22-30); Chloride 100 mmol/L (98-107); Glucose 85 mg/dL (74-99); INR 1.1 (<1.2); Lipase 39 U/L (23-300); Non-African American GFR(CKD) >90 (>60 ml/min/1.73 sqM); Partial Thromboplastin Time 27.4 sec (22.0-30.0); Potassium 4.3 mmol/L (3.5-5.1); Prothrombin Time 11.5 sec (10.0-12.5); Sodium 137 mmol/L (137-145); Total Bilirubin 1.5 mg/dL (0.2-1.3)
--- NOTE | 2023-08-09 01:58 | CT ---
EXAM: CT Abdomen and Pelvis With Intravenous Contrast CLINICAL HISTORY: ITS.REASON CT Reason: rlq pain TECHNIQUE: Axial computed tomography images of the abdomen and pelvis with intravenous contrast. CTDI is 7.5 mGy and DLP is 321.3 mGy-cm. This CT exam was performed using one or more of the following dose reduction techniques: automated exposure control, adjustment of the mA and/or kV according to patient size, and/or use of iterative reconstruction technique. COMPARISON: No relevant prior studies available. FINDINGS: Lung bases: Unremarkable. No mass. No consolidation. ABDOMEN: Liver: Unremarkable. No mass. Gallbladder and bile ducts: Unremarkable. No calcified stones. No ductal dilation. Pancreas: Unremarkable. No mass. No ductal dilation. Spleen: Unremarkable. No splenomegaly. Adrenals: Unremarkable. No mass. Kidneys and ureters: Unremarkable. No hydronephrosis or delayed nephrogram. Stomach and bowel: Unremarkable. No acute diverticulitis. No small bowel obstruction. No free air. PELVIS: Appendix: No findings to suggest acute appendicitis. Bladder: Decompressed urinary bladder. Reproductive: Unremarkable as visualized. ABDOMEN and PELVIS: Intraperitoneal space: See above. Bones/joints: No acute fracture. No dislocation. Soft tissues: Unremarkable. Vasculature: Unremarkable. No abdominal aortic aneurysm. Lymph nodes: Unremarkable. No enlarged lymph nodes. IMPRESSION: No acute findings in the abdomen or pelvis. Normal appendix.
[2023-08-09] MEDS ORDERED: IBUPROFEN 600 MG STARTER PACK 4 TAB BTL PO STA (02:35)
[2023-08-09] MEDS ORDERED: ONDANSETRON 4 MG ODT STARTER PACK 2 TAB BTL PO STA (02:35)
[2023-08-09 04:12] VITALS: BP 110/66; PULSE 89; TEMP 97.9
== END 2023-08-09 03:00 | disposition home or self-care (01) ==
LOC: EC 23:38
DX: R10.31 Right lower quadrant pain (principal); F17.200 Nicotine dependence, unspecified, uncomplicated; F12.90 Cannabis use, unspecified, uncomplicated; Z88.0 Allergy status to penicillin; Z86.59 Personal history of other mental and behavioral disorders
CPT/HCPCS: 36415; 80053; 82150; 83605; 83690; 85025; 85610; 85730; 81001; 81025; 74177; 99284; 96360; 96361; S0119; Q9967

== ENCOUNTER → 2023-11-10 | Outpatient (CLI) | payer BC, OTHER ==
--- NOTE | 2023-11-10 18:01 | XR ---
EXAMINATION TYPE: XR chest 2V DATE OF EXAM: 11/10/2023 12:12 PM CLINICAL INDICATION:Female, 23 years old with history of R059 COUGH; [facility] COMPARISON: None TECHNIQUE: XR chest 2V Frontal and lateral views of the chest. FINDINGS: Lungs/Pleura: There is no evidence of pleural effusion, focal consolidation, or pneumothorax. Pulmonary vascularity: Unremarkable. Heart/mediastinum: Cardiomediastinal silhouette is unremarkable. Musculoskeletal: No acute osseous pathology. IMPRESSION: No acute cardiopulmonary disease/process.
== END | disposition home or self-care (01) ==
LOC: RADXRYALE 11:55
PROVIDERS: ATTEND Physician Assistant Medical
DX: R05.9 Cough, unspecified (principal)
CPT/HCPCS: 71046

== ENCOUNTER 2024-01-16 17:50 | Emergency (ER) | payer BC, OTHER ==
--- NOTE | 2024-01-16 18:27 | ED ---
General Adult HPI - General Chief complaint: Wound/Laceration Stated complaint: Open Wounds Time Seen by Provider: 01/16/24 18:19 Source: patient, RN notes reviewed Mode of arrival: ambulatory Limitations: no limitations - History of Present Illness Initial comments: 23-year-old female presenting to the ED with chief complaint of skin lesions. Patient reports approximately 2 weeks ago started to have 2 spots on the back of her left upper and lower leg. States that she was initially putting antibiotic ointment on it however was told to stop as this seemed to be making it worse and was changed to mupirocin.. Since then, patient reports that these have grown in size and has become more painful. Also has developed a new spot on the back of her upper leg as well. Denies fever or chills. - Related Data Home Medications Medication Instructions Recorded Confirmed Acetaminophen [Tylenol Arthritis] 1,300 mg PO Q8H PRN 01/31/20 01/31/20 Previous Rx's Medication Instructions Recorded Dicyclomine [Bentyl] 10 mg PO TID #20 capsule 01/31/20 Allergies Allergy/AdvReac Type Severity Reaction Status Date / Time Penicillins Allergy Rash/Hives Verified 08/09/23 00:27 Review of Systems ROS Statement: Those systems with pertinent positive or pertinent negative responses have been documented in the HPI. ROS Other: All systems not noted in ROS Statement are negative. Past Medical History Additional Past Medical History / Comment(s): FREQUENT RIGHT EAR INFECTIONS, Chronic Constipation, Kidney infections History of Any Multi-Drug Resistant Organisms: None Reported Past Surgical History: Ear Surgery, Orthopedic Surgery Additional Past Surgical History / Comment(s): PREVIOUS MYRINGOTOMY AND TUBES X2, Pins in (R) ankle, Past Anesthesia/Blood Transfusion Reactions: No Reported Reaction Past Psychological History: Anxiety, Depression Smoking Status: Current every day smoker Past Alcohol Use History: None Reported Past Drug Use History: Marijuana - Past Family History Mother Family Medical History: No Reported History Brother(s) Family Medical History: Seizure Disorder General Exam Limitations: no limitations General appearance: alert, in no apparent distress Eye exam: Present: normal appearance Neck exam: Present: normal inspection Respiratory exam: Present: normal lung sounds bilaterally Cardiovascular Exam: Present: regular rate GI/Abdominal exam: Present: soft Neurological exam: Present: alert, oriented X3 Skin exam: Present: warm, dry, other (To macular lesions on the posterior aspect of the upper lower leg with no surrounding warmth erythema or tenderness to palpation. Does have a smaller lesion on the back of her upper leg which also shows no warmth erythema tenderness to palpation.) Course Vital Signs 01/16/24 18:02 Temperature 97.8 F Pulse Rate 59 L Respiratory 20 Rate Blood Pressure 123/81 O2 Sat by Pulse 98 Oximetry Medical Decision Making - Medical Decision Making Was pt. sent in by a medical professional or institution (, YANELY, TANNING SOLUTION MAKER, urgent care, hospital, or prison...) When possible be specific @ -No Did you speak to anyone other than the patient for history (EMS, parent, family, police, friend...)? What history was obtained from this source @ -No Did you review nursing and triage notes (agree or disagree)? Why? @ -I reviewed and agree with nursing and triage notes Were old charts reviewed (outside hosp., previous admission, EMS record, old EKG, old radiological studies, urgent care reports/EKG's, prison records)? Report findings @ -No old charts were reviewed Differential Diagnosis (chest pain, altered mental status, abdominal pain women, abdominal pain men, vaginal bleeding, weakness, fever, dyspnea, syncope, headache, dizziness, GI bleed, back pain, seizure, CVA, palpatations, mental health, musculoskeletal)? @ -Cellulitis, scalded skin syndrome, scabies. This not meant to be an all- inclusive list. EKG interpreted by me (3pts min.). @ -None X-rays interpreted by me (1pt min.). @ -None done CT interpreted by me (1pt min.). @ -None done U/S interpreted by me (1pt. min.). @ -None done What testing was considered but not performed or refused? (CT, X-rays, U/S, labs)? Why? @ -None What meds were considered but not given or refused? Why? @ -None Did you discuss the management of the patient with other professionals (professionals i.e. YANELY Tyson, TANNING SOLUTION MAKER, lab, RT, psych nurse, social work case manager, division chair, teacher, forestry technical officer, manager of case)? Give summary @ -No Was smoking cessation discussed for >3mins.? @ -No Was critical care preformed (if so, how long)? @ -No Were there social determinants of health that impacted care today? How? (Homelessness, low income, unemployed, alcoholism, drug addiction, transportation, low edu. Level, literacy, decrease access to med. care, group home, rehab)? @ -No Was there de-escalation of care discussed even if they declined (Discuss DNR or withdrawal of care, Hospice)? DNR status @ -No What co-morbidities impacted this encounter? (DM, HTN, Smoking, COPD, CAD, Cancer, CVA, ARF, Chemo, Hep., AIDS, mental health diagnosis, sleep apnea, morbid obesity)? @ -None Was patient admitted / discharged? Hospital course, mention meds given and route, prescriptions, significant lab abnormalities, going to OR and other pertinent info. @ -Discharge 23-year-old female presented to the ED with complaints of skin lesions ongoing for the last 2 weeks with new 1 forming over the last few days. On examination no evidence of infection. Please see exam for further details. Vital signs stable afebrile the patient also denies history of fever or chills. Patient instructed to keep applying mupirocin to these and keep them clean and dry. Advise close follow-up with her PCP. Discussed strict return precautions with patient who verbalized agreement. Undiagnosed new problem with uncertain prognosis? @ -No Drug Therapy requiring intensive monitoring for toxicity (Heparin, Nitro, Insulin, Cardizem)? @ -No Were any procedures done? @ -No Diagnosis/symptom? @ -Skin lesions Acute, or Chronic, or Acute on Chronic? @ -Acute Uncomplicated (without systemic symptoms) or Complicated (systemic symptoms)? @ -Uncomplicated Side effects of treatment? @ -No Exacerbation, Progression, or Severe Exacerbation? @ -No Poses a threat to life or bodily function? How? (Chest pain, [place], [place], pneumonia, PE, COPD, DKA, ARF, appy, cholecystitis, CVA, Diverticulitis, Homicidal, Suicidal, threat to staff... and all critical care pts) @ -No Disposition Clinical Impression: Skin lesion Disposition: HOME SELF-CARE Condition: Good Additional Instructions: Please return to the Emergency Department if symptoms worsen or any other concerns. Apply mupirocin as prescribed. Keep areas clean and dry. Wash the area at least once a day with warm water and antibacterial soap. Follow-up with your primary care provider. Is patient prescribed a controlled substance at d/c from ED?: No Referrals: Zulma Arredondo PAC [Primary Care Provider] - 1-2 days Time of Disposition: 21:04
[2024-01-16 21:50] VITALS: BP 102/45; PULSE 56; RESP 18; TEMP 98.6
== END 2024-01-16 21:11 | disposition home or self-care (01) ==
LOC: EC 17:50
DX: L98.9 Disorder of the skin and subcutaneous tissue, unspecified (principal); F17.200 Nicotine dependence, unspecified, uncomplicated; F12.90 Cannabis use, unspecified, uncomplicated; Z88.0 Allergy status to penicillin
CPT/HCPCS: 99282

== ENCOUNTER 2024-04-14 02:26 | Emergency (ER) | payer OTHER ==
[2024-04-14 02:35] VITALS: RESP 16
--- NOTE | 2024-04-14 02:51 | ED ---
Female Urogenital HPI - General Source: patient Mode of arrival: ambulatory Limitations: no limitations - History of Present Illness Last Menstrual Period: 02/29/24 <Hemanth Linda - Last Filed: 04/14/24 02:51> - History of Present Illness MD Complaint: vaginal bleeding -: hour(s) Location: LLQ, RLQ Severity: mild Quality: cramping Consistency: intermittent Improves with: none Worsens with: none Patient : Yes Associated Symptoms: vaginal bleeding <Chetan Dow - Last Filed: 04/15/24 10:21> - General Chief complaint: Vaginal Bleeding Stated complaint: Vaginal bleeding- , cramping Time Seen by Provider: 04/14/24 02:51 - History of Present Illness Initial comments: Quick note: 24-year-old female presenting with chief complaint of vaginal bleeding and cramping for the last 3 days. She had a recent positive at-home test. Her LMP was 618. (Hemanth Linda) Patient is a 24-year-old woman who had taken positive home test and now presents to have evaluation for pelvic cramping and vaginal bleeding. She has not had ultrasound performed yet. She does see Dr. George but has not seen her in relation to this . (Chetan Dow) - Related Data Home Medications Medication Instructions Recorded Confirmed Acetaminophen [Tylenol Arthritis] 1,300 mg PO Q8H PRN 01/31/20 01/31/20 Previous Rx's Medication Instructions Recorded Dicyclomine [Bentyl] 10 mg PO TID #20 capsule 01/31/20 Allergies Allergy/AdvReac Type Severity Reaction Status Date / Time Penicillins Allergy Rash/Hives Verified 04/14/24 02:35 Review of Systems ROS Other: All systems not noted in ROS Statement are negative. <Hemanth Linda - Last Filed: 04/14/24 02:51> ROS Other: All systems not noted in ROS Statement are negative. <Chetan Dow - Last Filed: 04/15/24 10:21> ROS Statement: Those systems with pertinent positive or pertinent negative responses have been documented in the HPI. Past Medical History Additional Past Medical History / Comment(s): FREQUENT RIGHT EAR INFECTIONS, Chronic Constipation, Kidney infections History of Any Multi-Drug Resistant Organisms: None Reported Past Surgical History: Ear Surgery, Orthopedic Surgery Additional Past Surgical History / Comment(s): PREVIOUS MYRINGOTOMY AND TUBES X2, Pins in (R) ankle, Past Anesthesia/Blood Transfusion Reactions: No Reported Reaction Past Psychological History: Anxiety, Depression Smoking Status: Current every day smoker Past Alcohol Use History: None Reported Past Drug Use History: Marijuana - Past Family History Mother Family Medical History: No Reported History Brother(s) Family Medical History: Seizure Disorder <Hemanth Linda - Last Filed: 04/14/24 02:51> General Exam Limitations: no limitations <Hemanth Linda - Last Filed: 04/14/24 02:51> Limitations: no limitations General appearance: alert, in no apparent distress Head exam: Present: atraumatic, normocephalic Eye exam: Present: normal appearance. Absent: scleral icterus, conjunctival injection ENT exam: Present: normal oropharynx Neck exam: Present: normal inspection Respiratory exam: Present: normal lung sounds bilaterally. Absent: respiratory distress, wheezes, rales, rhonchi, stridor, accessory muscle use Cardiovascular Exam: Present: regular rate, normal rhythm, normal heart sounds. Absent: systolic murmur, diastolic murmur, rubs GI/Abdominal exam: Present: soft. Absent: distended, tenderness, guarding, rebound, rigid, mass External exam: Present: other (Patient declined gynecologic exam here) Extremities exam: Present: normal inspection, normal capillary refill. Absent: pedal edema, calf tenderness Back exam: Present: normal inspection. Absent: CVA tenderness (R), CVA tenderness (L) Neurological exam: Present: alert Skin exam: Present: warm, dry, intact, normal color. Absent: rash <Chetan Dow - Last Filed: 04/15/24 10:21> - General Exam Comments Initial Comments: Visual Physical Exam Vital signs reviewed General: Well-appearing, nontoxic, no acute distress. Head: Normocephalic, atraumatic Eyes: PERRLA, EOMI ENT: Airway patent Chest: Nonlabored breathing Skin: No visual rash, normal skin tone Neuro: Alert and oriented 3 Musculoskeletal: No gross abnormalities (Hemanth Linda) Course Vital Signs 04/14/24 04/14/24 04/14/24 02:32 06:15 07:59 Temperature 97.9 F 98 F 98.1 F Pulse Rate 71 60 65 Respiratory 16 16 16 Rate Blood Pressure 130/84 107/66 110/66 O2 Sat by Pulse 99 99 99 Oximetry Medical Decision Making <Hemanth Linda - Last Filed: 04/14/24 02:51> - Lab Data Result diagrams: 04/14/24 03:56 <Chetan Dow - Last Filed: 04/15/24 10:21> - Medical Decision Making I performed the quick note portion of this visit, electronically signed Hemanth Linda PA-C (Hemanth Linda) Patient had ultrasound which I interpreted as not revealing presence of ectopic , intrauterine , or significant free fluid. Was pt. sent in by a medical professional or institution (YANELY Tyson, WEB DEVELOPMENT DIRECTOR, urgent care, hospital, or [facility]...) When possible be specific @ -[No] Did you speak to anyone other than the patient for history (EMS, parent, family, police, friend...)? What history was obtained from this source @ -[No] Did you review nursing and triage notes (agree or disagree)? Why? @ -[I reviewed and agree with nursing and triage notes] Were old charts reviewed (outside hosp., previous admission, EMS record, old EKG, old radiological studies, urgent care reports/EKG's, [facility] records)? Report findings @ -[No old charts were reviewed] Differential Diagnosis (chest pain, altered mental status, abdominal pain women, abdominal pain men, vaginal bleeding, weakness, fever, dyspnea, syncope, h eadache, dizziness, GI bleed, back pain, seizure, CVA, palpatations, mental health, musculoskeletal)? @ -[Differential Vaginal Bleeding: Spontaneous , threatened , molar , ectopic , bloody show, incompetent cervix, abruptioplacenta, placenta previa, uterine rupture, dysfunctional uterine bleeding, hemorrhage, uterine fibroids, this is not meant to be an all-inclusive list. EKG interpreted by me (3pts min.). @ -[ X-rays interpreted by me (1pt min.). @ -[None done] CT interpreted by me (1pt min.). @ -[None done] U/S interpreted by me (1pt. min.). @ -[I interpreted as above What testing was considered but not performed or refused? (CT, X-rays, U/S, labs)? Why? @ -[None] What meds were considered but not given or refused? Why? @ -[None] Did you discuss the management of the patient with other professionals (professionals i.e. , PA, WEB DEVELOPMENT DIRECTOR, lab, RT, psych nurse, social welfare research worker, art gilder, teacher, corporate security officer, case filler)? Give summary @ -[No] Was smoking cessation discussed for >3mins.? @ -[No] Was critical care preformed (if so, how long)? @ -[No] Were there social determinants of health that impacted care today? How? (Homelessness, low income, unemployed, alcoholism, drug addiction, transportation, low edu. Level, literacy, decrease access to med. care, halfway, rehab)? @ -[No] Was there de-escalation of care discussed even if they declined (Discuss DNR or withdrawal of care, Hospice)? DNR status @ -[No] What co-morbidities impacted this encounter? (DM, HTN, Smoking, COPD, CAD, Cancer, CVA, ARF, Chemo, Hep., AIDS, mental health diagnosis, sleep apnea, morbid obesity)? @ -[None] Was patient admitted / discharged? Hospital course, mention meds given and route, prescriptions, significant lab abnormalities, going to OR and other pertinent info. @ -[This patient is a 24-year-old woman presenting with vaginal bleeding in early . The beta hCG is very low, and ultrasound did not identify definite . I discussed with the patient the importance of having repeat hCG testing and ultrasound until the is identified or until the hCG becomes negative. Also discussed appropriate follow-up with the vacuum filter operator, return parameters and answered all questions. Undiagnosed new problem with uncertain prognosis? @ -[No] Drug Therapy requiring intensive monitoring for toxicity (Heparin, Nitro, Ins ulin, Cardizem)? @ -[No] Were any procedures done? @ -[No] Diagnosis/symptom? @ -[Vaginal bleeding in early Suspect spontaneous Acute, or Chronic, or Acute on Chronic? @ -[Acute Uncomplicated (without systemic symptoms) or Complicated (systemic symptoms)? @ -[Uncomplicated Side effects of treatment? @ -[No] Exacerbation, Progression, or Severe Exacerbation? @ -[No] Poses a threat to life or bodily function? How? (Chest pain, USA, NC, pneumonia, PE, COPD, DKA, ARF, appy, cholecystitis, CVA, Diverticulitis, Homicidal, Suicidal, threat to staff... and all critical care pts) @ -[Yes this does pose risk to reproductive health and possibly to life, was detailed to patient as above. Patient will have close follow-up (Chetan Dow) - Lab Data Lab Results 04/14/24 04/14/24 04/14/24 Range/Units 02:35 02:35 03:50 WBC (3.8-10.6) k/uL RBC (3.80-5.40) m/uL Hgb (11.4-16.0) gm/dL Hct (34.0-46.0) % MCV (80.0-100.0) fL MCH (25.0-35.0) pg MCHC (31.0-37.0) g/dL RDW (11.5-15.5) % Plt Count (150-450) k/uL MPV Neutrophils % % Lymphocytes % % Monocytes % % Eosinophils % % Basophils % % Neutrophils # (1.3-7.7) k/uL Lymphocytes # (1.0-4.8) k/uL Monocytes # (0-1.0) k/uL Eosinophils # (0-0.7) k/uL Basophils # (0-0.2) k/uL HCG, Quant mIU/mL Urine Color Colorless Urine Appearance Clear (Clear) Urine pH 6.0 (5.0-8.0) Ur Specific Industry 1.006 (1.001-1.035) Urine Protein Negative (Negative) Urine Glucose (UA) Negative (Negative) Urine Ketones Negative (Negative) Urine Blood Moderate H (Negative) Urine Nitrite Negative (Negative) Urine Bilirubin Negative (Negative) Urine Urobilinogen <2.0 (<2.0) mg/dL Ur Leukocyte Esterase Negative (Negative) Urine RBC 10 H (0-5) /hpf Urine WBC 3 (0-5) /hpf Ur Squamous Epith Cells 1 (0-4) /hpf Urine Bacteria Rare H (None) /hpf Urine Mucus Rare H (None) /hpf Urine HCG, Qual Detected (Not Detectd) Blood Type O Positive Blood Type Recheck O Pos Bld Type Recheck Status No 04/14/24 04/14/24 Range/Units 03:56 03:56 WBC 8.5 (3.8-10.6) k/uL RBC 4.87 (3.80-5.40) m/uL Hgb 14.2 (11.4-16.0) gm/dL Hct 43.0 (34.0-46.0) % MCV 88.3 (80.0-100.0) fL MCH 29.2 (25.0-35.0) pg MCHC 33.1 (31.0-37.0) g/dL RDW 12.0 (11.5-15.5) % Plt Count 299 (150-450) k/uL MPV 7.1 Neutrophils % 54 % Lymphocytes % 36 % Monocytes % 7 % Eosinophils % 1 % Basophils % 1 % Neutrophils # 4.6 (1.3-7.7) k/uL Lymphocytes # 3.1 (1.0-4.8) k/uL Monocytes # 0.6 (0-1.0) k/uL Eosinophils # 0.1 (0-0.7) k/uL Basophils # 0.1 (0-0.2) k/uL HCG, Quant 739.2 mIU/mL Urine Color Urine Appearance (Clear) Urine pH (5.0-8.0) Ur Specific Industry (1.001-1.035) Urine Protein (Negative) Urine Glucose (UA) (Negative) Urine Ketones (Negative) Urine Blood (Negative) Urine Nitrite (Negative) Urine Bilirubin (Negative) Urine Urobilinogen (<2.0) mg/dL Ur Leukocyte Esterase (Negative) Urine RBC (0-5) /hpf Urine WBC (0-5) /hpf Ur Squamous Epith Cells (0-4) /hpf Urine Bacteria (None) /hpf Urine Mucus (None) /hpf Urine HCG, Qual (Not Detectd) Blood Type Blood Type Recheck Bld Type Recheck Status Disposition <Hemanth Linda - Last Filed: 04/14/24 02:51> Is patient prescribed a controlled substance at d/c from ED?: No <Chetan Dow - Last Filed: 04/15/24 10:21> Clinical Impression: Threatened Disposition: HOME SELF-CARE Condition: Good Instructions (If sedation given, give patient instructions): Threatened Miscarriage (ED) Additional Instructions: We discussed, you must have your hCG level rechecked in 2 days and possibly have another ultrasound performed. You must return to the emergency department immediately if you are having worsening pain, worsening bleeding, or the other symptoms we discussed. No was visualized. Possibilities include normal too early to be seen, ectopic , and a missed miscarriage. Referrals: Ulises Robin DO [Primary Care Provider] - 1-2 days Eladia Tong DO [Doctor of Osteopathic Medicine] - 1-2 days
[2024-04-14 03:23] LABS: Appearance,Urine Clear (Clear); Bacteria,Urine Rare /hpf; Bilirubin,Urine Negative (Negative); Blood,Urine Moderate (Negative); Color,Urine Colorless; Glucose,Urine (UA) Negative (Negative); Ketones,Urine Negative (Negative); Leukocyte Esterase,Urine Negative (Negative); Mucus,Urine Rare /hpf; Nitrite,Urine Negative (Negative); Protein,Urine Negative (Negative); RBC,Urine 10 /hpf (0-5); Specific Gravity,Urine 1.006 (1.001-1.035); Squamous Epithelial Cell,Urine 1 /hpf (0-4); Urobilinogen,Urine <2.0 mg/dL (<2.0); WBC,Urine 3 /hpf (0-5)
[2024-04-14 04:31] LABS: Basophils # (A) 0.1 k/uL (0-0.2); Basophils % (A) 1 %; Eosinophils # (A) 0.1 k/uL (0-0.7); Eosinophils % (A) 1 %; HGB 14.2 gm/dL (11.4-16.0); Lymphocytes # (A) 3.1 k/uL (1.0-4.8); Lymphocytes % (A) 36 %; MCH 29.2 pg (25.0-35.0); MCHC 33.1 g/dL (31.0-37.0); MCV 88.3 fL (80.0-100.0); Mean Platelet Volume 7.1; Monocytes # (A) 0.6 k/uL (0-1.0); Monocytes % (A) 7 %; Neutrophils # (A) 4.6 k/uL (1.3-7.7); Neutrophils % (A) 54 %; Platelet Count 299 k/uL (150-450); RBC 4.87 m/uL (3.80-5.40); WBC 8.5 k/uL (3.8-10.6)
--- NOTE | 2024-04-14 07:41 | US ---
EXAMINATION TYPE: Transabdominal DATE OF EXAM: 04/14/2024 7:25 AM COMPARISON: NONE CLINICAL INDICATION: Female, 24 years old with history of vaginal bleeding, possible ectopic; Spottin g. Generalized pelvic pain. Patient states she conceived March 17. EXAM PERFORMED: Transabdominal (TA) EXAM MEASUREMENTS: GESTATIONAL AGE / DATING Physician Established: Not yet established Dates by LMP: (6 weeks/3 days) EDC: 12/05/2024 Dates by First Scan: No previous this is first scan Dates by Current Scan for: No IUP seen at this time MATERNAL ANATOMY Uterus: 7.1 x 4.4 x 3.5 cm Right Ovary: 3.4 x 1.7 x 1.7 cm Left Ovary: 2.9 x 2.0 x 1.7 cm Post CDS / Adnexa: no free fluid Presence of free fluid: no Presence of corpus luteal cyst: no Presence of subchorionic bleed: N/A GESTATION / SURVEY IUP: No IUP seen at this time Date of LMP: 02/29/2024, Beta HcG (if available): Today: 739.2 No GS, YS or CRL visualized on today's scan. IMPRESSION: 1. No intrauterine identified at this time. Several possibilities exist which include fco l early IUP, missed spontaneous as well as ectopic . Correlate clinically and with serial beta hCG and/or ultrasound.
[2024-04-14 08:00] VITALS: BP 110/66; PULSE 65; TEMP 98.1
== END 2024-04-14 08:00 | disposition home or self-care (01) ==
LOC: EC 02:26
DX: O20.0 Threatened abortion (principal); O99.331 Smoking (tobacco) complicating pregnancy, first trimester; F17.200 Nicotine dependence, unspecified, uncomplicated; Z88.0 Allergy status to penicillin; Z3A.01 Less than 8 weeks gestation of pregnancy
CPT/HCPCS: 36415; 76801; 81001; 81025; 84702; 85025; 86900; 86901; 99284

== ENCOUNTER → 2024-05-01 | Outpatient (CLI) | payer BC, OTHER ==
--- NOTE | 2024-05-26 12:08 | XR ---
Report Patient: Hui Manriquez Ordering Physician: Unknown, Unknown ID: [id number] Phone, Pager: Phone: N/A Pager: N/A : 2000 Age/Gender: 24Y, F Primary Location: N/A Procedure: ABDOMEN 2V Study Date: 05/01/2024 2:09:00 PM EXAMINATION TYPE: XR abdomen 2V DATE OF EXAM: 05/01/2024, dictated on 05/06/2024 due to downtime CLINICAL DATA: 24-year-old female constipation, excessive pressure on the rectum, COMPARISON: None FINDINGS: No evidence for free intraperitoneal air. No dilated small bowel loops. Moderate to large s tool within the lower abdomen and pelvis. No suspicious calcifications are seen. IMPRESSION: 1. Moderate to large stool in the pelvis. Correlation is made with the patient's 05/02/2024 CT. There appears to be moderate wall thickening of the sigmoid colon and rectum. Consider infectious or inflam matory colitis including the possibility of IBD. 2. No evidence for free air or bowel obstruction.
== END | disposition home or self-care (01) ==
LOC: RADXRYALE 14:00
PROVIDERS: ATTEND Physician Assistant Medical
DX: K59.00 Constipation, unspecified (principal); K52.9 Noninfective gastroenteritis and colitis, unspecified
CPT/HCPCS: 74019

== ENCOUNTER 2024-05-02 12:15 | Day surgery (SDC) | payer OTHER ==
[~2024-05-02 12:15] MED LIST changes: -CARBOPROST TROMETHAMINE 250 MCG/ML 1 ML AMP IM PRN; +HYDROmorphone 1 MG/ML 1 ML SYRINGE ONE; +KETOROLAC 15 MG/ML 1 ML VIAL ONE; -LIDOCAINE 0.5% (PF) 5 MG/ML (50 ML SDV) SQ PRN; -METHYLERGONOVINE 0.2 MG/ML 1 ML AMP IM PRN; +ONDANSETRON 4 MG/2 ML VIAL ONE; -OXYTOCIN 10 UNIT/ML 1 ML VIAL IM PRN; +SODIUM CHLORIDE 0.9% 1,000 ML BAG ONE; -TERBUTALINE 1 MG/ML VIAL SQ PRN
--- NOTE | 2024-05-23 13:49 | CT ---
Patient: Hui Manriquez Ordering Physician: Unknown, Unknown ID: [id number] Phone, Pager: Phone: N/A Pager: N/A : 2000 Age/Gender: 24Y, F Primary Location: N/A Procedure: ABD/PEL W/ Study Gonzalez e: 05/02/2024 11:54:32 AM EXAMINATION TYPE: CT abdomen pelvis w con DATE OF EXAM: 05/02/2024 COMPARISON: 08/09/2023 INDICATION: Prolapsed rectum, nausea and lower abdominal pain DLP: 395 mGycm, Automated exposure control for dose reduction was used. CONTRAST: 100 mL of Isovue 300. Study performed without Oral Contrast TECHNIQUE: Axial images were obtained from above the diaphragm to the pubic rami in the axial plane a t 5 mm thick sections. Reconstructed images are reviewed on the computer in the coronal plane. FINDINGS: Limited CT sections are obtained the lung bases. The lung bases are clear. CT ABDOMEN: Liver: Normal Spleen: Normal Pancreas: Normal Adrenal glands: The adrenal glands are normal. Gallbladder: Normal Kidneys: No masses are evident. No hydronephrosis is present. No cysts are present. Delayed images were obtained through the kidneys, which remain unremarkable. Aorta: Vascular calcification is within the aorta. Inferior vena cava: Normal. CT PELVIS: There is some moderate fecal debris within the rectum. Prolapsed rectum is not identified on the CT e xam study is without oral contrast limiting bowel evaluation. Appendix: Not identified. No dilated tubular structure or inflammatory change evident. Urinary bladder: Normal. Genitourinary structures: Uterus appears normal. There may be some mild prominent vascularity through the left adnexal region. No discrete large cysts evident within the ovaries. May be some fluid anter ior to the uterus and right adnexa. Consider pelvic ultrasound for additional evaluation. Hydrosalpin x is not excluded. Fluid location is somewhat unclear and could be bowel related as well. Osseous structures: No suspicious lytic or sclerotic lesions. IMPRESSION: 1. Fluid-filled structures within the right anterior hemipelvis. Differential diagnosis could includ e hydrosalpinx or fluid-filled small bowel loops with mild ileus. Consider follow-up with pelvic ultr asound. 2. No clear identification of the appendix. 3. Fecal debris in the rectum. Rectal prolapse not clearly identified.
== END 2024-05-02 12:16 | disposition home or self-care (01) ==
LOC: OR 12:15
DX: K62.3 Rectal prolapse (principal); F17.210 Nicotine dependence, cigarettes, uncomplicated
CPT/HCPCS: 74177

== ENCOUNTER 2024-05-25 09:29 | Day surgery (SDC) | payer BC, OTHER ==
[~2024-05-25 09:29] MED LIST changes: -HYDROmorphone 1 MG/ML 1 ML SYRINGE ONE; -KETOROLAC 15 MG/ML 1 ML VIAL ONE; +LACTATED RINGERS 1,000 ML IV SCH; -ONDANSETRON 4 MG/2 ML VIAL ONE; -SODIUM CHLORIDE 0.9% 1,000 ML BAG ONE
[2024-05-25] MEDS: LACTATED RINGERS 1,000 ML IV ONE (10:05)
[2024-05-25 10:11] VITALS: RESP 16; TEMP 97.6
[2024-05-25] MEDS ORDERED: PROPOFOL 10 MG/ML 20 ML VIAL IV ONE (10:40)
[2024-05-25] MEDS ORDERED: MIDAZOLAM 2 MG/2 ML VIAL ONE (10:40)
--- NOTE | 2024-05-25 10:56 | P.OP ---
Date of Procedure: 05/25/24 Preoperative Diagnosis: rectal prolapse Constipation Postoperative Diagnosis: normal colonoscopy Tortuous colon Procedure(s) Performed: colonoscopy Anesthesia: KARINE Surgeon: Frankie Owen Pathology: none sent Condition: stable Disposition: PACU Description of Procedure: nthe patient's placed on the endoscopy table in the lateral position. She received IV sedation. Digital rectal exam was performed. This revealed no abnormalities. Possible colonoscope was then placed patient anus and passed thr oughout the entire colon. The ileocecal valve was visualized. The cecum, ascending and transverse colon appeared normal. The descending and sigmoid colon appeared normal. Scope was brought back the rectum this appeared normal. The colonoscopy was normal however the colon was quite tortuous
[2024-05-25 11:49] VITALS: BP 106/62; PULSE 48
== END 2024-05-25 12:05 | disposition home or self-care (01) ==
LOC: ORWHC2ENDO 09:29
PROVIDERS: ATTEND Surgery
DX: K62.3 Rectal prolapse (principal); F17.210 Nicotine dependence, cigarettes, uncomplicated; Z88.0 Allergy status to penicillin
CPT/HCPCS: 81025; 45378; J2250; J2704

== ENCOUNTER 2025-01-11 10:09 | Emergency (ER) | payer OTHER, BC ==
--- NOTE | 2025-01-11 11:26 | XR ---
EXAMINATION TYPE: XR chest 2V DATE OF EXAM: 01/11/2025 11:23 AM COMPARISON: 11/10/2023 CLINICAL INDICATION: Female, 24 years old with history of Chest Pain, Chest pain TECHNIQUE: XR chest 2V views of the chest are obtained. FINDINGS: There is no focal air space opacity. No evidence for pneumothorax. No pleural effusion. The cardiac silhouette size is within normal limits. The osseous structures are grossly intact. IMPRESSION: 1. No acute cardiopulmonary process. [facility], , 01/11/2025 11:24 AM
[2025-01-11 12:01] LABS: Basophils # (A) 0.04 10*3/uL (0.00-0.10); Basophils % (A) 0.7 %; Eosinophils # (A) 0.05 10*3/uL (0.04-0.35); Eosinophils % (A) 0.8 %; HCT 47.1 % (37.2-46.3); Lymphocytes # (A) 2.08 10*3/uL (0.90-5.00); Lymphocytes % (A) 34.3 %; MCH 29.8 pg (27.0-32.0); MCV 87.7 fL (80.0-97.0); Mean Platelet Volume 9.5 fL (9.5-12.2); Monocytes # (A) 0.34 10*3/uL (0.20-1.00); Monocytes % (A) 5.6 %; Neutrophils # (A) 3.54 10*3/uL (1.80-7.70); Neutrophils % (A) 58.3 %; Platelet Count 274 10*3/uL (140-440); RBC 5.37 10*6/uL (4.10-5.20); RDW 11.7 % (11.5-14.5); WBC 6.07 10*3/uL (4.50-10.00)
[2025-01-11 12:23] LABS: ALT 19 U/L (4-34); African American GFR (CKD) >90 (>60 ml/min/1.73 sqM); Albumin 5.4 g/dL (3.5-5.0); Anion Gap 9 mmol/L; Blood Urea Nitrogen 8 mg/dL (7-17); Calcium 9.9 mg/dL (8.4-10.2); Carbon Dioxide 27 mmol/L (22-30); Chloride 104 mmol/L (98-107); Glucose 84 mg/dL (74-99); Lipase 52 U/L (23-300); Non-African American GFR(CKD) >90 (>60 ml/min/1.73 sqM); Sodium 140 mmol/L (137-145); Total Protein 8.6 g/dL (6.3-8.2)
[2025-01-11 12:35] LABS: AST 30 U/L (14-36); Alkaline Phosphatase 62 U/L (38-126); Magnesium 1.9 mg/dL (1.6-2.3); Potassium 4.5 mmol/L (3.5-5.1)
--- NOTE | 2025-01-11 13:07 | ED ---
Chest Pain HPI - General Chief Complaint: Chest Pain Stated Complaint: chest pain Time Seen by Provider: 01/11/25 10:25 Source: patient, RN notes reviewed Mode of arrival: ambulatory Limitations: no limitations - History of Present Illness Initial Comments: 24-year-old female presents emergency department complaint of left chest, rib pain. Patient states she was recently sick. Patient states she has pain in her ribs in her upper abdomen. Patient denies any significant nausea vomit diarrhea constipation. Patient states she has no urinary symptoms. Denies any reports of fever states that hurts with movement or if she presses on her ribs. - Related Data Previous Rx's Medication Instructions Recorded Ketorolac [Toradol] 10 mg PO Q8HR #15 tab 01/11/25 Allergies Allergy/AdvReac Type Severity Reaction Status Date / Time Penicillins Allergy Rash/Hives Verified 01/11/25 12:44 Review of Systems ROS Statement: Those systems with pertinent positive or pertinent negative responses have been documented in the HPI. ROS Other: All systems not noted in ROS Statement are negative. EKG Findings - EKG Comments: EKG Findings:: EKG performed at 10: 25 sinus bradycardia rate of 58 RI 140 QRS 83 QT/QTc 395/391 - EKG Results: EKG: interpreted by CARY Past Medical History Past Medical History: GERD/Reflux Additional Past Medical History / Comment(s): KIDNEY INFECTIONS. CONSTIPATION. History of Any Multi-Drug Resistant Organisms: None Reported Past Surgical History: Ear Surgery, Orthopedic Surgery Additional Past Surgical History / Comment(s): RIGHT EAR BONE INFECTIONS & SURGERY. DEAF IN RIGHT EAR. PREVIOUS MYRINGOTOMY AND TUBES X2. ORIF (R) ankle. Past Anesthesia/Blood Transfusion Reactions: Postoperative Nausea & Vomiting (PONV) Additional Past Anesthesia/Blood Transfusion Reaction / Comment(s): AGITATED. Past Psychological History: Anxiety, Depression Smoking Status: Current every day smoker Past Alcohol Use History: Rare Past Drug Use History: Marijuana - Past Family History Mother Family Medical History: No Reported History Brother(s) Family Medical History: Seizure Disorder General Exam Limitations: no limitations General appearance: alert, in no apparent distress Head exam: Present: atraumatic, normocephalic, normal inspection Eye exam: Present: normal appearance, PERRL, EOMI. Absent: scleral icterus, conjunctival injection, periorbital swelling ENT exam: Present: normal exam, mucous membranes moist Neck exam: Present: normal inspection, full ROM. Absent: tenderness, meningismus, lymphadenopathy Respiratory exam: Present: normal lung sounds bilaterally, chest wall tenderness. Absent: respiratory distress, wheezes, rales, rhonchi, stridor Cardiovascular Exam: Present: regular rate, normal rhythm, normal heart sounds. Absent: systolic murmur, diastolic murmur, rubs, gallop, clicks GI/Abdominal exam: Present: soft, normal bowel sounds. Absent: distended, tenderness, guarding, rebound, rigid Course Vital Signs 01/11/25 10:09 Temperature 97.7 F Pulse Rate 72 Respiratory 18 Rate Blood Pressure 138/92 O2 Sat by Pulse 100 Oximetry Chest Pain MDM - MDM Was pt. sent in by a medical professional or institution (, PA, SANITATION TECHNICIAN, urgent care, hospital, or detention...) When possible be specific @ -No Did you speak to anyone other than the patient for history (EMS, parent, family, police, friend...)? What history was obtained from this source @ -No Did you review nursing and triage notes (agree or disagree)? Why? @ -I reviewed and agree with nursing and triage notes Were old charts reviewed (outside hosp., previous admission, EMS record, old EKG, old radiological studies, urgent care reports/EKG's, detention records)? Report findings @ -No old charts were reviewed Differential Diagnosis (chest pain, altered mental status, abdominal pain women, abdominal pain men, vaginal bleeding, weakness, fever, dyspnea, syncope, headache, dizziness, GI bleed, back pain, seizure, CVA, palpatations, mental health, musculoskeletal)? @Differential Chest Pain: Stable Angina, Unstable Angina, STEMI, NSTEMI Aortic Dissection, Pneumothorax, Musculoskeletal, Esophageal Spasm GERD, Cholecystitis, Pancreatitis, Zoster, thi s is not meant to be an all-inclusive list. EKG interpreted by me (3pts min.). @ -As above X-rays interpreted by me (1pt min.). @ -Shows no acute cardiopulmonary process. CT interpreted by me (1pt min.). @ -None done U/S interpreted by me (1pt. min.). @ -None done What testing was considered but not performed or refused? (CT, X-rays, U/S, labs)? Why? @ -None What meds were considered but not given or refused? Why? @ -None Did you discuss the management of the patient with other professionals (professionals i.e. , PA, SANITATION TECHNICIAN, lab, RT, psych nurse, clinical social work aide, campus police officer, teacher, [employer] officer, window caser)? Give summary @ -No Was smoking cessation discussed for >3mins.? @ -No Was critical care preformed (if so, how long)? @ -No Were there social determinants of health that impacted care today? How? (Homelessness, low income, unemployed, alcoholism, drug addiction, transportation, low edu. Level, literacy, decrease access to med. care, [facility], rehab)? @ -No Was there de-escalation of care discussed even if they declined (Discuss DNR or withdrawal of care, Hospice)? DNR status @ -No What co-morbidities impacted this encounter? (DM, HTN, Smoking, COPD, CAD, Cancer, CVA, ARF, Chemo, Hep., AIDS, mental health diagnosis, sleep apnea, morbid obesity)? @ -None Was patient admitted / discharged? Hospital course, mention meds given and route, prescriptions, significant lab abnormalities, going to OR and other pertinent info. @ -Discharge patient has reproducible chest wall pain, pleuritic pain. Patient has costochondritis. Patient be discharged in stable condition return for as discussed. Undiagnosed new problem with uncertain prognosis? @ -No Drug Therapy requiring intensive monitoring for toxicity (Heparin, Nitro, Insulin, Cardizem)? @ -No Were any procedures done? @ -No Diagnosis/symptom? @ -Chest wall pain Acute, or Chronic, or Acute on Chronic? @ -Acute acute Uncomplicated (without systemic symptoms) or Complicated (systemic symptoms)? @ -Uncomplicated Side effects of treatment? @ -No Exacerbation, Progression, or Severe Exacerbation? @ -No Poses a threat to life or bodily function? How? (Chest pain, [place], [place], pneumonia, PE, COPD, DKA, ARF, appy, cholecystitis, CVA, Diverticulitis, Homicidal, Suicidal, threat to staff... and all critical care pts) @ -No Disposition Clinical Impression: Chest wall pain Disposition: HOME SELF-CARE Condition: Stable Instructions (If sedation given, give patient instructions): Chest Pain (ED) Additional Instructions: Please return to the Emergency Department if symptoms worsen or any other concerns. Prescriptions: Ketorolac [Toradol] 10 mg PO Q8HR #15 tab Is patient prescribed a controlled substance at d/c from ED?: No Referrals: Ulises Robin DO [Primary Care Provider] - 1-2 days Time of Disposition: 13:24
[2025-01-11 14:26] VITALS: BP 110/54; PULSE 66; RESP 22; TEMP 98
== END 2025-01-11 14:02 | disposition home or self-care (01) ==
LOC: EC 10:09
DX: R07.89 Other chest pain (principal); F17.200 Nicotine dependence, unspecified, uncomplicated; Z88.0 Allergy status to penicillin
CPT/HCPCS: 36415; 71046; 80053; 83690; 83735; 84484; 85025; 93005; 99285